=== PATIENT | female | born 1950 | race Caucasian/White ===

== ENCOUNTER 2016-11-15 15:21 | Outpatient (CLI) | payer OTHER | END 2016-11-15 15:22 | disposition home or self-care (01) | DX: Z00.00 Encounter for general adult medical examination without abnormal findings (principal) ==

== ENCOUNTER 2018-03-05 11:41 | Outpatient (CLI) | payer OTHER, MEDICARE ==
--- NOTE | 2018-03-05 14:51 | XRAY Report ---
PELVIS AND RIGHT HIP: 03/05/2018 HISTORY: Pain. COMPARISON: Pelvic CT 11/27/2009. FINDINGS: The hip joints are well maintained. There is no fracture or malalignment. Sacroiliac joints and symphysis pubis are unremarkable. Mild degenerative change in the lower lumbar spine. IMPRESSION: ESSENTIALLY NEGATIVE PELVIS AND RIGHT HIP X-RAY. TD: 03/05/2018 14:31
== END 2018-03-05 11:42 | disposition home or self-care (01) ==
LOC: DI 11:41
PROVIDERS: ATTEND Internal Medicine
DX: M25.551 Pain in right hip (principal)

== ENCOUNTER 2018-08-25 08:28 | Emergency (ER) | payer MEDICARE, OTHER ==
[2018-08-25] MEDS ORDERED: SODIUM CHLORIDE 0.9% 1,000 ML IV ONE (10:22)
--- NOTE | 2018-08-25 10:24 | ED Physician Documentation ---
History of Present Illness - Stated complaint Stated Complaint: VISION CHANGES/ALOC - Chief complaint Chief Complaint: Neuro - History obtained from History obtained from: Patient, Family - History of Present Illness Timing: How many weeks ago (1) - Additonal information Additional information: intermittent visual changes with difficulty concentrating and a lot of stress at home. She reports difficulty concentrating and especially trying to read. Review of Systems Constitutional: reports: Fatigue. denies: Fever, Chills, Myalgias Eyes: reports: Other (difficutly with reading/concentration). denies: Loss of vision, Decreased vision, Photophobia, Discharge, Irritation Nose: denies: Rhinorrhea / runny nose, Congestion Throat: denies: Sore throat Cardiac: denies: Chest pain / pressure, Palpitations Respiratory: denies: Dyspnea, Cough GI: denies: Abdominal Pain, Nausea, Vomiting : denies: Dysuria, Frequency Skin: denies: Rash Musculoskeletal: denies: Neck pain, Back pain, Extremity pain Neurologic: reports: Confused. denies: Generalized weakness, Focal weakness, Numbness PD PAST MEDICAL HISTORY - Present Medications Home Medications: Ambulatory Orders Medication Instructions Recorded Confirmed Atorvastatin [Lipitor] 20 mg PO DAILY #30 tablet 08/25/18 Ipratropium/Albuterol [Duoneb] QID PRN 08/25/18 - Allergies Allergies/Adverse Reactions: Allergies Allergy/AdvReac Type Severity Reaction Status Date / Time No Known Drug Allergies Allergy Verified 08/25/18 08:53 PD ED PE NORMAL - Vitals Vital signs reviewed: Yes (hypertensive) - General General: Alert and oriented X 3, No acute distress, Well developed/nourished - HEENT HEENT: Atraumatic, PERRL, EOMI, Moist mucous membranes, Pharynx benign, Dentition benign - Neck Neck: Supple, no meningeal sign, No bony TTP - Cardiac Cardiac: RRR, No murmur - Respiratory Respiratory: No respiratory distress, Clear bilaterally - Abdomen Abdomen: Soft, Non tender - Back Back: No CVA TTP, No spinal TTP - Derm Derm: Normal color, Warm and dry, No rash - Extremities Extremities: No deformity, No edema - Neuro Neuro: Alert and oriented X 3, 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4 RBC 4.13 L Hgb 13.8 Hct 39.0 MCV 94.5 MCH 33.3 H MCHC 35.2 RDW 13.6 Plt Count 476 H MPV 7.2 L Neut # (Auto) 3.6 Lymph # (Auto) 2.1 [place] # (Auto) 0.5 Eos # (Auto) 0.1 Baso # (Auto) 0.2 H Absolute Nucleated RBC 0.00 Nucleated RBC % 0.1 Sodium 134 L Potassium 3.6 Chloride 98 L Carbon Dioxide 28 Anion Gap 8.0 BUN 8 Creatinine 0.6 Estimated GFR (MDRD) 100 Glucose 108 H Calcium 8.4 L Total Bilirubin 0.4 AST 21 ALT 18 Alkaline Phosphatase 66 Troponin I < 0.04 Total Protein 6.6 L Albumin 3.5 Globulin 3.1 Albumin/Globulin Ratio 1.1 Lipase 38 Urine Color Urine Clarity Urine pH Ur Specific [place] Urine Protein Urine Glucose (UA) Urine Ketones Urine Occult Blood Urine Nitrite Urine Bilirubin Urine Urobilinogen Ur Leukocyte Esterase Ur Microscopic Review Urine Culture Comments 08/25/18 12:19 WBC RBC Hgb Hct MCV MCH MCHC RDW Plt Count MPV Neut # (Auto) Lymph # (Auto) [place] # (Auto) Eos # (Auto) Baso # (Auto) Absolute Nucleated RBC Nucleated RBC % Sodium Potassium Chloride Carbon Dioxide Anion Gap BUN Creatinine Estimated GFR (MDRD) Glucose Calcium Total Bilirubin AST ALT Alkaline Phosphatase Troponin I Total Protein Albumin Globulin Albumin/Globulin Ratio Lipase Urine Color DARK YELLOW Urine Clarity CLEAR Urine pH 6.5 Ur Specific [place] 1.020 Urine Protein NEGATIVE Urine Glucose (UA) NEGATIVE Urine Ketones TRACE Urine Occult Blood NEGATIVE Urine Nitrite NEGATIVE Urine Bilirubin NEGATIVE Urine Urobilinogen 0.2 (NORMAL) Ur Leukocyte Esterase NEGATIVE Ur Microscopic Review NOT INDICATED Urine Culture Comments NOT INDICATED - Rads (name of study) CT head without Radiology: Prelim report reviewed (Impression: Posterior distribution hypodensity in the right temporoparietal/occipital distribution is most concerning for subacute infarction though a nonvisualized mass with surrounding edema represents a lice likely differential diagnosis. There is no substantial mass-effect or calcification to suggest an underlying mass.), Final report rece ived, Discussed with rads, EMP read indepedently, See rad report doppler carotid Radiology: Prelim report reviewed (Impression: 1. There is mild bilateral carotid artery plaquing. 2 In the right carotid artery there are no elevated carotid artery velocities to suggest hemodynamically significant stenosis. 3 In the left carotid artery there are no elevated carotid artery velocities to suggest hemodynamically significant stenosis. 4 Normal antegrade flow is present in bilateral vertebral arteries.), EMP read indepedently, See rad report Procedures - IVC sono (time) 1008 Bedside IVC sono: IVC measures (cm) (1.39), IVC collapsed c insp (cm) (complete), Dehydration (mild est at 1 liter.) PD MEDICAL DECISION MAKING - ED course Complexity details: reviewed results, re-evaluated patient, considered differential, d/w patient, d/w family ED course: 68 y/o female with one week history of "vision problems" with trouble concentrating and difficulty reading appears to have had a CVA in the occipital distribution. She is outside the window of opportunity. My initial reaction was to admit this patient to the hospital to complete a stroke work up and after discussing this completed stroke with our hospitalist, Suzy recommended obtaining the carotid doppler here today and the remainder of the work up as an outpatient and of course treatment with aspirin and a statin. I was in agreement with this approach and the patient preferred this as well. She does have a primary in our system and out patient work up should not be delayed to include the echo and MRI of the head. She will need referral to a neurologist for follow up as well. Departure - Departure Disposition: 01 Home, Self Care Clinical Impression: Cerebrovascular accident (CVA) Qualifiers: CVA mechanism: unspecified Qualified Code(s): I63.9 - Cerebral infarction, unspecified Condition: Stable Instructions: ED Stroke Completed Follow-Up: Jeferson Price MD [Primary Care Provider] - Prescriptions: Atorvastatin [Lipitor] 20 mg PO DAILY #30 tablet Forms: Activity restrictions
[2018-08-25 10:44] LABS: BASOPHILS # (AUTO) 0.2 10^3/uL (0.0-0.1); BASOPHILS % (AUTO) 2.8 %; EOSINOPHILS # (AUTO) 0.1 10^3/uL (0.0-0.7); EOSINOPHILS % (AUTO) 1.4 %; HGB - HEMOGLOBIN 13.8 g/dL (12.0-16.0); LYMPHOCYTES # (AUTO) 2.1 10^3/uL (1.5-3.5); LYMPHOCYTES % (AUTO) 32.8 %; MEAN CORPUSCULAR HEMOGLOBIN 33.3 pg (27.0-31.0); MEAN CORPUSCULAR HGB CONC 35.2 g/dL (32.0-36.0); MEAN CORPUSCULAR VOLUME 94.5 fL (81.0-99.0); MEAN PLATELET VOLUME 7.2 fL (7.9-10.8); MONOCYTES # (AUTO) 0.5 10^3/uL (0.0-1.0); MONOCYTES % (AUTO) 7.4 %; NEUTROPHILS # (AUTO) 3.6 10^3/uL (1.5-6.6); NEUTROPHILS % (AUTO) 55.6 %; PLT - PLATELET COUNT 476 10^3/uL (130-450); RED BLOOD COUNT 4.13 10^6/uL (4.20-5.40); RED CELL DISTRIBUTION WIDTH 13.6 % (12.0-15.0); WHITE BLOOD COUNT 6.4 x10^3/uL (4.8-10.8)
[2018-08-25 10:52] LABS: ALBUMIN 3.5 g/dL (3.2-5.5); ALBUMIN/GLOBULIN RATIO 1.1 (1.0-2.2); BILIRUBIN,TOTAL 0.4 mg/dL (0.2-1.0); CALCIUM 8.4 mg/dL (8.5-10.3); CREATININE 0.6 mg/dL (0.4-1.0); TOTAL PROTEIN 6.6 g/dL (6.7-8.2)
--- NOTE | 2018-08-25 10:58 | CT Report ---
Reason: vision changes/disorientation Procedure Date: 08/25/2018 Accession Number: [id number] / [id number] Procedure: CT - Head W/O CPT Code: FULL RESULT: EXAM: CT HEAD WITHOUT CONTRAST EXAM DATE: 08/25/2018 10:43 AM. CLINICAL HISTORY: Vision changes/disorientation. COMPARISON: None. TECHNIQUE: Multiaxial CT images were obtained from the foramen magnum to the vertex. Reformats: Sagittal and coronal. IV contrast: None. In accordance with CT protocol optimization, one or more of the following dose reduction techniques were utilized for this exam: automated exposure control, adjustment of mA and/or KV based on patient size, or use of iterative reconstructive technique. FINDINGS: Parenchyma: Hypodensity in a right posterior parietotemporal-occipital distribution is suspicious for subacute infarction. No intraparenchymal hemorrhage. No evidence of significant mass or midline shift. Bee-white differentiation is distinct. Extraaxial Spaces: Normal for age. No subdural or epidural collections identified. Ventricles: Normal in size and position. Sinuses and Orbits: Imaged paranasal sinuses, orbits, and mastoids show no significant abnormality. Bones: No evidence of fracture or calvarial defect. Other: None. IMPRESSION: Posterior distribution hypodensity in the right temporoparietal-occipital distribution is most concerning for subacute infarction though a nonvisualized mass with surrounding edema represents a less likely differential diagnosis. There is no substantial mass effect or calcification to suggest an underlying mass. RADIA CRITICAL RESULT: The findings were discussed with Dr. Hunt on 08/25/2018 at 11:50 AM.
[2018-08-25 12:24] LABS: BILIRUBIN,URINE NEGATIVE (NEGATIVE); GLUCOSE, URINE (UA) NEGATIVE (NEGATIVE); KETONES,URINE (UA) TRACE mg/dL (NEGATIVE); LEUKOCYTE ESTERASE, URINE NEGATIVE (NEGATIVE); NITRITE,URINE NEGATIVE (NEGATIVE); OCCULT BLOOD,URINE NEGATIVE (NEGATIVE); PH,URINE 6.5 PH (5.0-7.5); PROTEIN,URINE NEGATIVE (NEGATIVE); UROBILINOGEN,URINE 0.2 (NORMAL) E.U./dL (NORMAL)
[2018-08-25 12:30] LABS: CLARITY,URINE CLEAR (CLEAR)
--- NOTE | 2018-08-25 14:14 | Ultrasound Report ---
Reason: CVA with right occipital infarction Procedure Date: 08/25/2018 Accession Number: [id number] / [id number] Procedure: US - Carotid Doppler Complete CPT Code: FULL RESULT: EXAM: BILATERAL CAROTID AND VERTEBRAL ARTERY DUPLEX DOPPLER ULTRASOUND: EXAM DATE: 08/25/2018 01:33 PM CLINICAL HISTORY: Stroke. COMPARISON: None. TECHNIQUE: Grayscale imaging, color Doppler, and duplex spectral Doppler were used to evaluate the carotid and vertebral arteries bilaterally. Static images were obtained. FINDINGS: No significant plaque is identified in the right or left common or internal carotid arteries. Normal antegrade flow is present in bilateral vertebral arteries. VELOCITIES (cm/sec): Right: RCCA Mid: PSV 61.6 cm/sec. RCCA Dist: PSV 50.4 cm/sec. BJ Prox: PSV 47.6 cm/sec, EDV 18.7 cm/sec. BJ Mid: PSV 75.5 cm/sec, EDV 27.7 cm/sec. BJ Dist: PSV 90.4 cm/sec, EDV 36.5 cm/sec RECA: PSV 103.6 cm/sec. RVA: PSV 34.4 cm/sec. RVA flow direction: Antegrade. ICA/CCA: 1.47 Left: LCCA Mid: PSV 55.5 cm/sec. LCCA Dist: PSV 58.5 cm/sec. LICA Prox: PSV 58.8 cm/sec, EDV 25.8 cm/sec. LICA Mid: PSV 82.3 cm/sec, EDV 31.9 cm/sec. LICA Dist: PSV 60.5 cm/sec, EDV 21.8 cm/sec LECA: PSV 49.3 cm/sec. LVA: PSV 48.7 cm/sec. RVA flow direction: Antegrade. ICA/CCA: 1.40 ICA diameter stenosis: Right: <50% by velocity and <70% by NASCET criteria. Left: <50% by velocity and <70% by NASCET criteria. IMPRESSION: 1. There is mild bilateral carotid artery plaquing. 2. In the right carotid artery there are no elevated carotid artery velocities to suggest hemodynamically significant stenosis. 3. In the left carotid artery there are no elevated carotid artery velocities to suggest hemodynamically significant stenosis. 4. Normal antegrade flow is present in bilateral vertebral arteries. General Recommendations: Stenosis =50% ICA - Follow-up ultrasound 6-12 months Stenosis <50% ICA - High Risk Patient with plaque - Follow-up ultrasound 1-2 years Normal Study but High Risk Patient - Follow-up ultrasound 3-5 years Management recommendations and diagnostic criteria are based on current IAC endorsed standards in Carotid Artery Stenosis: Grayscale and Doppler Ultrasound Diagnosis. Validated velocity measurements with angiographic measurements and velocity criteria are extrapolated from diameter data as defined by the Society of Radiologists in Ultrasound Consensus Conference Radiology 2003; 229;340-346. RADIA
[2018-08-25] MEDS ORDERED: ASPIRIN CHEW 81 MG TABLET PO STA (14:15)
[2018-08-25] MEDS ORDERED: ATORVASTATIN 40 MG TABLET PO STA (14:16)
[2018-08-25 14:49] VITALS: BP 164/98
== END 2018-08-25 14:53 | disposition home or self-care (01) ==
LOC: ED 08:28
DX: I63.9 Cerebral infarction, unspecified (principal); R94.31 Abnormal electrocardiogram [ECG] [EKG]
CPT/HCPCS: 36415; 70450; 80053; 81003; 83690; 84484; 85025; 93005; 93880; 96360; 99283; 99284; A9270; 81001; 87086

== ENCOUNTER 2018-10-10 13:32 | Outpatient (CLI) | payer MEDICARE, OTHER | END 2018-10-10 13:33 | disposition home or self-care (01) | LOC: DI 13:32 | PROVIDERS: ATTEND Registered Nurse | DX: I63.9 Cerebral infarction, unspecified (principal); H53.40 Unspecified visual field defects; I35.8 Other nonrheumatic aortic valve disorders | CPT/HCPCS: 93306 ==

== ENCOUNTER 2019-02-08 07:27 | Outpatient (CLI) | payer MEDICARE, OTHER ==
[2019-02-08 10:50] LABS: ALBUMIN 4.7 g/dL (3.2-5.5); ALKALINE PHOSPHATASE 54 IU/L (42-121); ALT ALANINE AMINOTRANSFERASE 24 IU/L (10-60); AST ASPARTATE AMINOTRANSFERASE 24 IU/L (10-42); BILIRUBIN,TOTAL 1.1 mg/dL (0.2-1.0); BUN - BLOOD UREA NITROGEN 12 mg/dL (6-20); CALCIUM 8.8 mg/dL (8.5-10.3); CARBON DIOXIDE - CO2 29 mmol/L (21-32); CHLORIDE 95 mmol/L (101-111); CHOL/HDL RATIO 2.2 (<4.4); CHOLESTEROL 180 mg/dL; CREATININE 0.5 mg/dL (0.4-1.0); GFR - MDRD 123 (>89); GLUCOSE 101 mg/dL (70-100); HDL CHOLESTEROL 81 mg/dL; LDL CHOLESTEROL,CALCULATED 85 mg/dL; SODIUM 134 mmol/L (135-145); VLDL CHOLESTEROL 14 mg/dL
== END 2019-02-08 07:28 | disposition home or self-care (01) ==
LOC: LAB.F 07:27
PROVIDERS: ATTEND Internal Medicine
DX: I10 Essential (primary) hypertension (principal)
CPT/HCPCS: 36415; 80053; 80061; 83721

== ENCOUNTER 2019-04-30 | Outpatient (CLI) | payer MEDICARE, OTHER | END 2019-04-30 07:41 | disposition home or self-care (01) ==

== ENCOUNTER 2019-12-07 16:36 | Outpatient (CLI) | payer MEDICARE, OTHER | END 2019-12-07 23:59 | disposition home or self-care (01) | LOC: LAB.R 16:36 | PROVIDERS: ATTEND Nurse Practitioner Family | DX: R50.9 Fever, unspecified (principal); M79.10 Myalgia, unspecified site | CPT/HCPCS: 81599; 87275; 87276 ==

== ENCOUNTER 2019-12-14 15:09 | Outpatient (CLI) | payer MEDICARE, OTHER ==
--- NOTE | 2019-12-14 15:31 | XRAY Report ---
Reason: COUGH, COPD Procedure Date: 12/14/2019 Accession Number: [id number] / [id number] Procedure: WCP - Chest 2 View X-Ray CPT Code: 20352 Final Report FULL RESULT: EXAM: CHEST RADIOGRAPHY EXAM DATE: 12/14/2019 03:09 PM. CLINICAL HISTORY: Cough, COPD. COMPARISON: XR CHEST PA AND LAT 02/26/2011 3:20 PM. TECHNIQUE: 2 views. FINDINGS: Lungs/Pleura: Hyperinflation. Development of infiltrate along the lateral right upper and lower lung, with infiltrate along the major fissure and the posterior costophrenic angle. The left lung appears clear. Hyperinflation. No pleural fluid collections. Mediastinum: Heart and mediastinal contours are unremarkable. Other: None. IMPRESSION: Development of lateral right sided infiltrate. Followup to resolution suggested. RADIA
== END 2019-12-14 15:10 | disposition home or self-care (01) ==
LOC: DI.WCP 15:09
PROVIDERS: ATTEND Nurse Practitioner Family
DX: R91.8 Other nonspecific abnormal finding of lung field (principal)
CPT/HCPCS: 71046

== ENCOUNTER 2019-12-17 08:37 | Outpatient (CLI) | payer MEDICARE, OTHER ==
--- NOTE | 2019-12-17 09:53 | XRAY Report ---
Reason: COUGH,DIVERTICULOSIS,ASYMPTOMATIC Procedure Date: 12/17/2019 Accession Number: [id number] / [id number] Procedure: XR - Chest 2 View X-Ray CPT Code: 21674 Final Report FULL RESULT: EXAM: CHEST RADIOGRAPHY EXAM DATE: 12/17/2019 09:10 AM. CLINICAL HISTORY: Cough, diverticulosis, asymptomatic. COMPARISON: CHEST 2 VIEW 12/14/2019 2:34 PM. TECHNIQUE: 2 views. FINDINGS: Lungs/Pleura: No significant change in areas of dense consolidation predominantly in the lateral right upper lobe and lateral segment of the right middle lobe. Development of a subtle area of opacification laterally in the left upper lobe. Stable moderate hyperinflation. No pleural fluid collections. Mediastinum: No cardiomegaly. Stable appearance of the mediastinal silhouette. Other: None. IMPRESSION: No significant change in areas of dense consolidation laterally in the right lung. Subtle infiltrative process also suggested laterally in the left midlung field. Follow-up to resolution suggested. RADIA
== END 2019-12-17 08:38 | disposition home or self-care (01) ==
LOC: DI 08:37
PROVIDERS: ATTEND Nurse Practitioner Family
DX: J18.1 Lobar pneumonia, unspecified organism (principal)
CPT/HCPCS: 71046

== ENCOUNTER 2020-02-09 06:28 | Emergency (ER) | payer MEDICARE, OTHER ==
[2020-02-09] MEDS ORDERED: IOVERSOL 320 100 ML VIAL IVP ONE (06:49)
[2020-02-09] MEDS: ONDANSETRON 4 MG/2 ML VIAL IVP STA (06:50)
[2020-02-09] MEDS ORDERED: ONDANSETRON 4 MG/2 ML VIAL ONE (06:50)
[2020-02-09] MEDS: IOVERSOL 320 100 ML VIAL IVP ONE (07:13)
--- NOTE | 2020-02-09 07:36 | ED Physician Documentation ---
PD HPI HEADACHE - Stated complaint Stated Complaint: POSS STROKE - Chief complaint Chief Complaint: General - History obtained from History obtained from: Patient, EMS - History of Present Illness Timing - onset: Enter time (609), Today Timing - onset during: Light activity Timing - duration: Minutes Timing - details: Abrupt onset, Still present Location: Global Quality: Throbbing Associated symptoms: Nausea, Vision changes. No: Fever, Stiff neck, Vomiting, Weakness, Numbness, Syncope, Seizure, Eye pain Improved by: Rest Contributing factors: Hypertension. No: Anticoagulated, Possible carbon monoxide, Recent illness, Trauma Similar symptoms before: Diagnosis (CAV with resultant hemianopsia) Recently seen: Not recently seen - Additional information Additional information: 69-year-old female with a prior history of occipital CVA resulting in a hemianopsia was driving on her way to work this morning when she developed bright flashing lights in the periphery of her vision and subsequent to that she developed nausea and a headache she felt confused she pulled over onto the side of the road and was brought to the hospital by ambulance. Review of Systems Constitutional: denies: Fever, Chills, Myalgias, Fatigue Eyes: reports: Loss of vision (to the left lateral visual field-- pre existing), Photophobia (mild) Ears: denies: Ear pain Nose: denies: Rhinorrhea / runny nose, Congestion Throat: denies: Sore throat Cardiac: denies: Chest pain / pressure, Palpitations Respiratory: denies: Dyspnea, Cough GI: reports: Nausea. denies: Abdominal Pain, Vomiting : denies: Dysuria, Frequency Skin: denies: Rash Musculoskeletal: denies: Neck pain, Back pain, Extremity pain Neurologic: reports: Altered mental status, Headache. denies: Generalized weakness, Focal weakness, Numbness, Difficulty speaking, Head injury, LOC PD PAST MEDICAL HISTORY - Past Medical History Past Medical History: Yes Respiratory: COPD Neuro: CVA Endocrine/Autoimmune: None GI: Diverticulitis HYPERION ADMINISTRATOR: None : None HEENT: Other Psych: None Musculoskeletal: None Derm: None - Past Surgical History Past Surgical History: Yes General: Appendectomy /HYPERION ADMINISTRATOR: section HEENT: Cataracts, Tonsil/Adenoidectomy - Present Medications Home Medications: Ambulatory Orders Medication Instructions Recorded Confirmed Atorvastatin [Lipitor] 20 mg PO DAILY #30 tablet 08/25/18 Ipratropium/Albuterol [Duoneb] QID PRN 08/25/18 Levetiracetam [Keppra] 250 mg PO BID #40 tablet 02/09/20 - Allergies Allergies/Adverse Reactions: Allergies Allergy/AdvReac Type Severity Reaction Status Date / Time No Known Drug Allergies Allergy Verified 02/09/20 06:37 - Social History Does the pt smoke?: Yes Smoking Status: Current every day smoker Does the pt drink ETOH?: Yes Does the pt have substance abuse?: No - Immunizations Immunizations are current?: Yes - POLST Patient has POLST: No PD ED PE NORMAL - Vitals Vital signs reviewed: Yes (hypertensive) - General General: Alert and oriented X 3, No acute distress, Well developed/nourished - HEENT HEENT: Atraumatic, PERRL, EOMI - Neck Neck: Supple, no meningeal sign, No bony TTP - Cardiac Cardiac: RRR, No murmur - Respiratory Respiratory: No respiratory distress, Clear bilaterally - Abdomen Abdomen: Normal bowel sounds, Soft, Non tender, Non distended, No organomegaly - Back Back: No CVA TTP, No spinal TTP - Derm Derm: Normal color, Warm and dry, No rash - Extremities Extremities: No deformity, No edema - Neuro Neuro: Alert and oriented X 3, 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, No motor deficit, Normal speech, Other (There is a left hemianopsia) Eye Opening: Spontaneous Motor: Obeys Commands Verbal: Oriented GCS Score: 15 - Psych Psych: Normal affect, Other (mood is anxious) Results - Vitals Vitals: Vital Signs - 24 hr 02/09/20 02/09/20 02/09/20 06:32 06:37 06:50 Temperature 37.3 C Heart Rate 83 Respiratory 17 17 18 Rate Blood Pressure 174/81 H O2 Saturation 94 02/09/20 02/09/20 02/09/20 07:09 07:57 09:01 Temperature 36.8 C Heart Rate 80 106 H Respiratory 17 18 17 Rate Blood Pressure 152/71 H 152/72 H O2 Saturation 95 98 02/09/20 02/09/20 11:18 13:40 Temperature Heart Rate 93 93 Respiratory 18 18 Rate Blood Pressure 140/73 H 140/73 H O2 Saturation 99 99 Oxygen O2 Source Room air - EKG (time done) 0644 Rate: Rate (enter#) (82) Rhythm: NSR Ischemia: Normal ST segments Compare to prior EKG: Unchanged from prior EKG (SPT 08-25-2018) Computer interpretation: Agree with computer - Labs Labs: Laboratory Tests 02/09/20 02/09/20 02/09/20 07:22 07:22 07:22 WBC 7.7 RBC 3.98 L Hgb 12.3 Hct 38.1 MCV 95.7 MCH 30.9 MCHC 32.3 RDW 14.3 Plt Count 259 MPV 9.2 Neut # (Auto) 5.7 Lymph # (Auto) 1.4 L [place] # (Auto) 0.5 Eos # (Auto) 0.2 Baso # (Auto) 0.1 Absolute Nucleated RBC 0.00 Nucleated RBC % 0.0 PT 11.3 INR 1.0 APTT 28.3 Sodium 132 L Potassium 4.2 Chloride 101 Carbon Dioxide 25 Anion Gap 6.0 BUN 14 Creatinine 0.5 Estimated GFR (MDRD) 123 Glucose 118 H Calcium 8.3 L Urine Color Urine Clarity Urine pH Ur Specific [place] Urine Protein Urine Glucose (UA) Urine Ketones Urine Occult Blood Urine Nitrite Urine Bilirubin Urine Urobilinogen Ur Leukocyte Esterase Ur Microscopic Review Urine Culture Comments 02/09/20 08:45 WBC RBC Hgb Hct MCV MCH MCHC RDW Plt Count MPV Neut # (Auto) Lymph # (Auto) [place] # (Auto) Eos # (Auto) Baso # (Auto) Absolute Nucleated RBC Nucleated RBC % PT INR APTT Sodium Potassium Chloride Carbon Dioxide Anion Gap BUN Creatinine Estimated GFR (MDRD) Glucose Calcium Urine Color YELLOW Urine Clarity CLEAR Urine pH 6.0 Ur Specific [place] 1.010 Urine Protein NEGATIVE Urine Glucose (UA) NEGATIVE Urine Ketones NEGATIVE Urine Occult Blood NEGATIVE Urine Nitrite NEGATIVE Urine Bilirubin NEGATIVE Urine Urobilinogen 0.2 (NORMAL) Ur Leukocyte Esterase NEGATIVE Ur Microscopic Review NOT INDICATED Urine Culture Comments NOT INDICATED - Rads (name of study) CTA head Radiology: Prelim report reviewed (1. More likely chronic than acute segmental occlusion of the proximal right ADJUNCT TEACHER on the same side as previous infarct. 2. No other evidence of for intracranial acute large vessel occlusion or aneurysm.), EMP read indepedently, See rad report CTA neck Radiology: Prelim report reviewed (Impression: 1. Multifocal large artery atherosclerosis with calcified and noncalcified plaque but no evidence of acute abnormality or flow-limiting stenosis of the cervical vertebral or carotid arteries. 2 abnormally enlarged lymph node in the upper mediastinum on the right side of the esophagus. 3 Prominent chronic multilevel hypertrophic degenerative cervical spine spondylosis especially severe hypertrophic facet arthropathy at the left at C5 C4), EMP read indepedently, See rad report CT head Radiology: Prelim report reviewed (Impression: 1. No acute CT evidence of intracranial abnormality. 2. Large old right ADJUNCT TEACHER territory infarct of the medial right occipital lobe. 3. No abnormal enhancement.) PD MEDICAL DECISION MAKING - ED course Complexity details: reviewed old records, reviewed results, re-evaluated patient, considered differential, d/w patient ED course: 69-year-old female with a prior CVA resulting in a left hemianopsia has developed symptoms in route to the hospital this morning with some flashing lights and confusion as well as a headache and nausea is treated here in the emergency department with a migraine cocktail has some improvement in her headache but has persistent symptoms of tingling and weakness. She still does not feel right. Her CTA of the head and neck today are concerning for a large vessel occlusion. The neurologist Dr. Katherine Silveira at [facility] is consulted in the case and after review of the history is concerned for the possibility of seizure versus migraine and she recommends loading with Keppra and a follow-up with her neurologist. We were able to contact the patient's primary and were able to get that her neurologist was Dr. Blake Kiser of [facility]. He has seen the patient once in [place] and his recommendation was to get prolonged monitoring for the suspicion of A. fib. The patient indicates she did have monitoring done and was placed on metoprolol by the jump iron machine presser for rapid heart rate. She did not have atrial fibrillation. Dr. Kiser was mostly concerned about prolonged monitoring as the most likely culprit in the type of clot that she is exhibiting is atrial fibrillation. He has recommended a dosing regimen for the Keppra to be 250 mg twice daily followed by 500 twice daily and a follow-up with him. He recommends patient not drive at this time. 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 For this reason it is important that you not drive for the time being until you are cleared by Dr. Kiser. He has recommended you take Keppra 250 mg twice per day for a week followed by 500 mg twice per day and a follow-up with him. He would like you to have an extended period of monitoring to look for atrial fibrillation. This should be set up by your primary care doctor and through your jump iron machine presser.
[2020-02-09] MEDS: SODIUM CHLORIDE 0.9% 1,000 ML IV ONE (07:52)
[2020-02-09] MEDS: PROCHLORPERAZINE 10 MG/2 ML VIAL IVP STA (07:53)
[2020-02-09] MEDS: diphenhydrAMINE INJ 50 MG/ML VIAL IVP STA (07:55)
--- NOTE | 2020-02-09 07:55 | CT Report ---
Reason: L sided facial droop, L neck pain Procedure Date: 02/09/2020 Accession Number: [id number] / [id number] Procedure: CT - ANGIO NECK W CPT Code: Final Report FULL RESULT: EXAM: CT ANGIOGRAM NECK EXAM DATE: 02/09/2020 07:09 AM. CLINICAL HISTORY: Headache, nausea and left facial droop. Neck pain. COMPARISON: None. TECHNIQUE: Routine axial helical imaging was performed from the skull base through the aortic arch. Reconstructions: Routine multiplanar 3D MIP reconstructions. IV Contrast: 80 mL Optiray 320. Evaluation of arterial stenosis is based on a NASCET method of measurement. In accordance with CT protocol optimization, one or more of the following dose reduction techniques were utilized for this exam: automated exposure control, adjustment of mA and/or KV based on patient size, or use of iterative reconstructive technique. FINDINGS: Probable mild apical pulmonary parenchymal scarring with minimal emphysema. Moderate to severe chronic multilevel hypertrophic degenerative cervical spinal spondylosis including especially severe facet arthropathy on the left at C4-C5. Mild broad-based cervical dextroscoliosis. Minimal degenerative C4 on C5 anterolisthesis. Slight degenerative C5 on C6 retrolisthesis is also present. Along the right side of the upper mediastinal esophagus is an ovoid region of soft tissue density measuring up to 11 x 19 mm transverse on image 130 of series 2, likely an abnormally enlarged lymph node. Mild to moderate chronic atherosclerotic calcifications at the top of the aortic arch. The great vessel origins are patent. Mild to moderate atherosclerosis at the cervical carotid bifurcations. Allowing for motion artifact there is, however, no evidence of acute abnormality or focal flow-limiting stenosis of the cervical carotid arteries, including in the proximal cervical ICA segments. Unremarkable appearance of the right cervical vertebral artery. Mild atherosclerotic luminal stenosis at the origin of the left cervical vertebral artery which shows no other evidence of flow-limiting stenosis or acute abnormality in the neck. IMPRESSION: 1. Multifocal large-artery atherosclerosis with calcified and noncalcified plaque but no evidence of acute abnormality or flow-limiting stenosis of the cervical vertebral or carotid arteries. 2. Abnormally enlarged lymph node in the upper mediastinum on the right side of the esophagus. 3. Prominent chronic multilevel hypertrophic degenerative cervical spinal spondylosis. Especially severe hypertrophic facet arthropathy on the left at C4-C5. RADIA
[2020-02-09] MEDS: KETOROLAC 30 MG/ML VIAL IVP STA (07:56)
[2020-02-09] MEDS: DEXAMETHASONE 10 MG/ML VIAL IVP STA (07:56)
[2020-02-09 07:57] LABS: PT - PROTHROMBIN TIME 11.3 secs (9.9-12.6)
[2020-02-09 08:02] LABS: CALCIUM 8.3 mg/dL (8.5-10.3); CREATININE 0.5 mg/dL (0.4-1.0)
[2020-02-09 08:03] LABS: BASOPHILS # (AUTO) 0.1 10^3/uL (0.0-0.1); BASOPHILS % (AUTO) 0.6 %; EOSINOPHILS # (AUTO) 0.2 10^3/uL (0.0-0.7); EOSINOPHILS % (AUTO) 2.2 %; HGB - HEMOGLOBIN 12.3 g/dL (12.0-16.0); LYMPHOCYTES # (AUTO) 1.4 10^3/uL (1.5-3.5); LYMPHOCYTES % (AUTO) 17.4 %; MEAN CORPUSCULAR HEMOGLOBIN 30.9 pg (27.0-31.0); MEAN CORPUSCULAR HGB CONC 32.3 g/dL (32.0-36.0); MEAN CORPUSCULAR VOLUME 95.7 fL (81.0-99.0); MEAN PLATELET VOLUME 9.2 fL (7.9-10.8); MONOCYTES # (AUTO) 0.5 10^3/uL (0.0-1.0); MONOCYTES % (AUTO) 6.2 %; NEUTROPHILS # (AUTO) 5.7 10^3/uL (1.5-6.6); NEUTROPHILS % (AUTO) 73.2 %; PLT - PLATELET COUNT 259 10^3/uL (130-450); RED BLOOD COUNT 3.98 10^6/uL (4.20-5.40); RED CELL DISTRIBUTION WIDTH 14.3 % (12.0-15.0); WHITE BLOOD COUNT 7.7 x10^3/uL (4.8-10.8)
--- NOTE | 2020-02-09 08:03 | CT Report ---
Reason: L sided facial droop Procedure Date: 02/09/2020 Accession Number: [id number] / [id number] Procedure: CT - ANGIO HEAD W/WO CPT Code: Final Report FULL RESULT: EXAM: CT ANGIOGRAM HEAD. CT SCAN OF THE HEAD WITHOUT AND WITH CONTRAST. EXAM DATE: 02/09/2020 07:09 AM CLINICAL HISTORY: Left facial droop, headache and nausea. COMPARISON: HEAD W/O 08/25/2018 10:28 AM. TECHNIQUE: - CT Scan Head: Using a multidetector scanner, axial images were acquired from the foramen magnum to the skull vertex prior to and following contrast administration. - CT Angiogram: Using a multidetector scanner, high-resolution axial images were acquired from the skull base through vertex following rapid infusion of intravenous contrast. Reformats: Multiplanar MIP reformats were reconstructed. NASCET criteria used for stenosis measurement. IV Contrast: 80 mL Optiray 320. In accordance with CT protocol optimization, one or more of the following dose reduction techniques were utilized for this exam: automated exposure control, adjustment of mA and/or KV based on patient size, or use of iterative reconstructive technique. FINDINGS: Brain CT without IV contrast: Again seen are findings of a now large chronic infarct in the right AUDIENCE DEVELOPMENT MANAGER vascular territory involving the medial right occipital lobe. This has a chronic appearance and now measures about 6 x 2.[address] evidence of acute hemorrhage or acute ischemic infarct, aspects 10. No hydrocephalus or midline shift. Probable mild inferior right mastoid mucosal thickening. Small left anterior maxillary retention cyst. No acute calvarial defect. Brain CT with IV contrast: No abnormal enhancement. Head CT angiogram: Mild chronic punctate calcifications of the left intradural vertebral artery. No vertebrobasilar insufficiency. No acute abnormality or flow-limiting stenosis of the intradural vertebral arteries or basilar artery. More likely chronic than acute segmental occlusion of the proximal right posterior cerebral artery, on the same side as the large old right AUDIENCE DEVELOPMENT MANAGER territory infarct. Patent distal internal carotid arteries with moderately prominent multifocal chronic atherosclerotic calcifications of the proximal pair clinoid and cavernous ICA segments. No proximal flow-limiting stenosis or occlusion of the anterior cerebral arteries, middle cerebral arteries or left posterior cerebral artery. No evidence for aneurysm of the [place] of [place] or major dural venous sinus obstructive thrombus. IMPRESSION: CT Head: 1. No CT evidence of acute intracranial abnormality. 2. Large old right AUDIENCE DEVELOPMENT MANAGER territory infarct of the medial right occipital lobe. 3. No abnormal enhancement. CTA Head: 1. More likely chronic than acute segmental occlusion of the proximal right AUDIENCE DEVELOPMENT MANAGER on the same side as previous infarct. 2. No other evidence for intracranial acute large vessel occlusion or aneurysm. Note: The above findings do not preclude the possibility of small or early ischemic infarct for which brain MRI is more sensitive. RADIA
[2020-02-09 08:05] LABS: PARTIAL THROMBOPLASTIN TIME 28.3 secs (24.9-33.3)
[2020-02-09 09:58] LABS: BILIRUBIN,URINE NEGATIVE (NEGATIVE); GLUCOSE, URINE (UA) NEGATIVE (NEGATIVE); KETONES,URINE (UA) NEGATIVE (NEGATIVE); LEUKOCYTE ESTERASE, URINE NEGATIVE (NEGATIVE); NITRITE,URINE NEGATIVE (NEGATIVE); OCCULT BLOOD,URINE NEGATIVE (NEGATIVE); PROTEIN,URINE NEGATIVE (NEGATIVE); UROBILINOGEN,URINE 0.2 (NORMAL) E.U./dL (NORMAL)
[2020-02-09 09:59] LABS: CLARITY,URINE CLEAR (CLEAR)
[2020-02-09] MEDS: levETIRAcetam INJ 1,000 MG in SODIUM CHLORIDE 0.9% 100ML 100 ML IV STA (10:39)
[2020-02-09 11:24] VITALS: BP 140/73
--- NOTE | 2020-02-10 16:23 | ED Physician Documentation ---
ED Addendum - Addendum Addendum: 02/10/20 16:22 I received a call from provider in [place] asking for a review and vaccine to him an EKG on this patient. She presented today in [place] with chest pain and had EKG showing T wave inversions anteriorly V1 through V4 and an elevated troponin and he wanted a comparison view. I faxed both EKG and the ER record to him at the number he provided. This was done through the [facility] [place].
== END 2020-02-09 16:08 | disposition home or self-care (01) ==
LOC: EDUNIT# → ED 06:28
DX: I69.398 Other sequelae of cerebral infarction (principal); R56.9 Unspecified convulsions; H53.47 Heteronymous bilateral field defects; I70.0 Atherosclerosis of aorta; F17.200 Nicotine dependence, unspecified, uncomplicated
CPT/HCPCS: 36415; 70496; 70498; 80048; 81003; 85025; 85610; 85730; 93005; 96361; 96365; 96375; 99285; J1200; Q9967; 81001; 87086

== ENCOUNTER 2020-08-26 08:00 | Outpatient (CLI) | payer MEDICARE, OTHER | END 2020-08-26 23:59 | disposition home or self-care (01) | LOC: LAB.R 08:00 | PROVIDERS: ATTEND Family Medicine | DX: N39.0 Urinary tract infection, site not specified (principal) | CPT/HCPCS: 87086 ==

== ENCOUNTER 2020-09-15 09:00 | Outpatient (CLI) | payer MEDICARE, OTHER | END 2020-09-15 23:59 | disposition home or self-care (01) | LOC: LAB.S 09:00 | PROVIDERS: ATTEND Emergency Medicine | DX: R30.0 Dysuria (principal) | CPT/HCPCS: 87086 ==

== ENCOUNTER 2020-09-21 12:56 | Emergency (ER) | payer MEDICARE, OTHER ==
[2020-09-21] MEDS ORDERED: LACTATED RINGERS 1,000 ML IV STA (13:36)
[2020-09-21 14:02] LABS: BASOPHILS % (AUTO) 0.6 %; EOSINOPHILS # (AUTO) 0.1 10^3/uL (0.0-0.7); EOSINOPHILS % (AUTO) 2.6 %; LYMPHOCYTES # (AUTO) 1.9 10^3/uL (1.5-3.5); LYMPHOCYTES % (AUTO) 34.2 %; MEAN CORPUSCULAR HEMOGLOBIN 33.6 pg (27.0-31.0); MEAN CORPUSCULAR HGB CONC 33.1 g/dL (32.0-36.0); MEAN CORPUSCULAR VOLUME 101.4 fL (81.0-99.0); MEAN PLATELET VOLUME 9.2 fL (7.9-10.8); MONOCYTES # (AUTO) 0.5 10^3/uL (0.0-1.0); MONOCYTES % (AUTO) 8.5 %; NEUTROPHILS # (AUTO) 2.9 10^3/uL (1.5-6.6); NEUTROPHILS % (AUTO) 53.9 %; PLT - PLATELET COUNT 255 10^3/uL (130-450); RED BLOOD COUNT 3.57 10^6/uL (4.20-5.40); RED CELL DISTRIBUTION WIDTH 13.7 % (12.0-15.0); WHITE BLOOD COUNT 5.4 x10^3/uL (4.8-10.8)
[2020-09-21 14:12] LABS: CALCIUM 9.3 mg/dL (8.5-10.3); CREATININE 0.7 mg/dL (0.4-1.0)
[2020-09-21] MEDS ORDERED: IOVERSOL 320 100 ML VIAL IVP ONE ×2 (14:21→14:43)
--- NOTE | 2020-09-21 14:58 | CT Report ---
PROCEDURE: ANGIO HEAD W/WO INDICATIONS: transient vision loss CONTRAST: IV CONTRAST: Optiray 320 ml: 80 PO CONTRAST: *NO PO CONTRAST TECHNIQUE: Precontrast 4.5 mm thick angled axial sections acquired from the foramen magnum to the vertex. Afte r the administration of intravenous contrast, 1 mm thick sections acquired through the [place] of [place] is. Postcontrast 4.5 mm thick sections then re-acquired from the foramen magnum to the vertex. 3-di mensional kxzxzvu-mbzkkphyg-zwehqdtxbm (MIP) and/or volume rendering reformats were acquired of the c entral intracranial vasculature. For radiation dose reduction, the following was used: automated ex posure control, adjustment of mA and/or kV according to patient size. COMPARISON: CT angiogram of the head dated 02/09/2020. FINDINGS: Image quality: Excellent. Anterior circulation: The inferior intracranial internal carotid arteries are normal in size and flow . Atheromatous calcifications are present bilaterally within the cavernous portions of the internal c arotid arteries with resultant moderate stenosis. The flow within the paired anterior cerebral arter ies is normal and symmetric. The flow within the middle cerebral arteries is normal and symmetric. The anterior communicating artery is not seen. No aneurysms are seen. Posterior circulation: Visualized portions of the vertebral arteries demonstrate normal caliber, and join to form a normal appearing basilar artery. Flow within the posterior cerebral arteries is norm al and symmetric. No aneurysms are seen. CSF spaces: Ventricles are normal in size and shape. Basal cisterns are patent. No extra-axial flu id collections. Brain: No midline shift. Encephalomalacia is redemonstrated within the right occipital lobe unchange d from the CT dated 02/09/2020. No intracranial bleeds or masses. Bee-white matter interface appears intact. Skull and face: Calvarium and facial bones appear intact, without suspicious lesions. Sinuses: Visualized sinuses and mastoids are clear. IMPRESSION: 1. No acute intercranial findings. 2. Old right ANALYSIS MGR distribution infarct, unchanged and the study dated 02/09/2020. 3. No new stenosis, occlusion, or aneurysm. Reviewed by: Leandra Hernandez MD on 09/21/2020 2:57 PM PST Approved by: Leandra Hernandez MD on 09/21/2020 2:57 PM PST Station ID: [id number]
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
--- NOTE | 2020-09-21 17:01 | Ultrasound Report ---
PROCEDURE: Carotid Doppler Complete INDICATIONS: r/o carotid stenosis. possible TIA TECHNIQUE: Color and pulse Doppler interrogation was performed of both carotid systems, with image documentation and velocity measurements. COMPARISON: 08/25/2018 FINDINGS: Right side: Common carotid artery peak systolic velocity: 71 cm/sec. Internal carotid artery peak systolic velocity: 99 cm/sec. Internal carotid artery end diastolic velocity: 32 cm/sec. External carotid artery peak systolic velocity: 94 cm/sec. ICA/CCA peak systolic ratio: 1.4 . Bee scale imaging description: Intimal medial thickening of the common carotid artery. Mixed calcif ied and noncalcified plaque at the right carotid bulb causing a minor subjective luminal ICA stenosis . Mild spectral broadening of the distal waveform in the ICA. Percent internal carotid artery stenosis: Less than 50%. . Vertebral artery: Flow direction is antegrade. Left side: Common carotid artery peak systolic velocity: 61 cm/sec. Internal carotid artery peak systolic velocity: 86 cm/sec. Internal carotid artery end diastolic velocity: 33 cm/sec. External carotid artery peak systolic velocity: 88 cm/sec. ICA/CCA peak systolic ratio: 1.4 . Bee scale imaging description: Shadowing calcific plaque left carotid bulb causing mild to moderate subjective luminal stenosis and luminal irregularity. There is intimal medial thickening in the comm on carotid artery. Calcific plaque seen in the proximal internal carotid artery causing mild subjecti ve luminal narrowing. Vascular tortuosity results and waveform spectral broadening. Percent internal carotid artery stenosis: Less than 50% . Vertebral artery: Flow direction is antegrade. IMPRESSION: 1. Less than 50% internal carotid artery stenosis bilaterally based on waveform and velocity criteria . 2. Moderate calcific plaque in the left carotid bulb and left ICA origin. 3. Bilateral intimal medial thickening of the common carotid arteries. The estimate of stenosis included in the report of the imaging study was calculated using the NASCET method Reviewed by: Adenike Pena MD on 09/21/2020 5:00 PM PST Approved by: Adenike Pena MD on 09/21/2020 5:00 PM PST Station ID: [id number]
[2020-09-21 17:08] VITALS: BP 157/81
== END 2020-09-21 17:00 | disposition home or self-care (01) ==
LOC: ED 12:56
DX: H54.3 Unqualified visual loss, both eyes (principal); I10 Essential (primary) hypertension; I25.2 Old myocardial infarction; F17.200 Nicotine dependence, unspecified, uncomplicated
CPT/HCPCS: 36415; 70496; 80048; 85025; 93880; 99281; 99284; J7120; Q9967

== ENCOUNTER 2020-09-25 08:00 | Outpatient (CLI) | payer MEDICARE, OTHER | END 2020-09-25 23:59 | disposition home or self-care (01) | LOC: LAB.N 08:00 | PROVIDERS: ATTEND Physician Assistant Medical | DX: A09 Infectious gastroenteritis and colitis, unspecified (principal); Z20.828 Contact with and (suspected) exposure to other viral communicable diseases ==

== ENCOUNTER 2020-10-02 07:36 | Outpatient (CLI) | payer MEDICARE, OTHER | END 2020-10-02 07:37 | disposition critical access hospital (66) | LOC: EMS 07:36 | PROVIDERS: ATTEND Surgery | DX: R41.0 Disorientation, unspecified (principal); R51.9 Headache, unspecified; H53.8 Other visual disturbances; R11.0 Nausea | CPT/HCPCS: A0425; A0427 ==

== ENCOUNTER 2020-10-02 08:10 | Emergency (ER) | payer MEDICARE, OTHER ==
[2020-10-02] MEDS ORDERED: ONDANSETRON 4 MG/2 ML VIAL IVP STA (08:27)
[2020-10-02] MEDS ORDERED: ASPIRIN 325 MG TABLET PO STA (08:29)
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
[2020-10-02 09:06] LABS: BASOPHILS # (AUTO) 0.1 10^3/uL (0.0-0.1); BASOPHILS % (AUTO) 0.4 %; EOSINOPHILS # (AUTO) 0.1 10^3/uL (0.0-0.7); EOSINOPHILS % (AUTO) 0.5 %; HGB - HEMOGLOBIN 12.1 g/dL (12.0-16.0); LYMPHOCYTES # (AUTO) 1.1 10^3/uL (1.5-3.5); LYMPHOCYTES % (AUTO) 8.8 %; MEAN CORPUSCULAR HGB CONC 34.3 g/dL (32.0-36.0); MEAN CORPUSCULAR VOLUME 99.2 fL (81.0-99.0); MEAN PLATELET VOLUME 9.2 fL (7.9-10.8); MONOCYTES # (AUTO) 0.9 10^3/uL (0.0-1.0); MONOCYTES % (AUTO) 7.1 %; NEUTROPHILS # (AUTO) 10.4 10^3/uL (1.5-6.6); NEUTROPHILS % (AUTO) 82.6 %; PLT - PLATELET COUNT 314 10^3/uL (130-450); RED BLOOD COUNT 3.56 10^6/uL (4.20-5.40); RED CELL DISTRIBUTION WIDTH 13.3 % (12.0-15.0); WHITE BLOOD COUNT 12.6 x10^3/uL (4.8-10.8)
[2020-10-02 09:18] LABS: GLUCOSE, URINE (UA) 100 mg/dL (NEGATIVE); KETONES,URINE (UA) TRACE mg/dL (NEGATIVE); LEUKOCYTE ESTERASE, URINE NEGATIVE (NEGATIVE); NITRITE,URINE NEGATIVE (NEGATIVE); OCCULT BLOOD,URINE NEGATIVE (NEGATIVE); PH,URINE 5.5 PH (5.0-7.5); PROTEIN,URINE TRACE mg/dL (NEGATIVE); UROBILINOGEN,URINE 0.2 (NORMAL) E.U./dL (NORMAL)
[2020-10-02 09:18] LABS: ALBUMIN/GLOBULIN RATIO 1.3 (1.0-2.2); ALKALINE PHOSPHATASE 64 IU/L (42-121); ALT ALANINE AMINOTRANSFERASE 15 IU/L (10-60); AST ASPARTATE AMINOTRANSFERASE 20 IU/L (10-42); BILIRUBIN,TOTAL 0.7 mg/dL (0.2-1.0); BUN - BLOOD UREA NITROGEN 13 mg/dL (6-20); CALCIUM 8.8 mg/dL (8.5-10.3); CARBON DIOXIDE - CO2 24 mmol/L (21-32); CHLORIDE 95 mmol/L (101-111); CREATININE 0.7 mg/dL (0.4-1.0); GLUCOSE 110 mg/dL (70-100); LIPASE 32 U/L (22-51); SODIUM 131 mmol/L (135-145); TOTAL PROTEIN 7.1 g/dL (6.7-8.2)
--- NOTE | 2020-10-02 09:21 | XRAY Report ---
PROCEDURE: Chest 1 View X-Ray INDICATIONS: Chest Pain TECHNIQUE: One view of the chest was acquired. COMPARISON: 12/17/2019 FINDINGS: Surgical changes and devices: None. Lungs and pleura: No pleural effusions or pneumothorax. Lungs are clear. Mediastinum: Mediastinal contours appear normal. Heart size is normal. Bones and chest wall: No suspicious bony lesions. Overlying soft tissues appear unremarkable. IMPRESSION: No acute cardiopulmonary pathology. Reviewed by: Yo Disla MD on 10/02/2020 9:20 AM [facility] Approved by: Yo Disla MD on 10/02/2020 9:20 AM [facility] Station ID: [id number]
[2020-10-02 09:24] LABS: CLARITY,URINE CLEAR (CLEAR)
[2020-10-02 09:25] LABS: MUDS CUTOFF CONCENTRATIONS CUTOFF CONC BELOW:
[2020-10-02 09:27] LABS: BILIRUBIN,URINE NEGATIVE (NEGATIVE); ICTOTEST,URINE NEGATIVE
[2020-10-02 09:36] LABS: BACTERIA,URINE Few /HPF (None Seen); RBC,URINE 0-5 /HPF (0-5); SQUAMOUS EPITHELIAL CELL,UR MOD Squamous (<= Few)
[2020-10-02 09:38] LABS: AMPHETAMINE SCREEN,URINE NEGATIVE (NEGATIVE); BENZODIAZEPINES SCREEN, URINE NEGATIVE (NEGATIVE); COCAINE SCREEN URINE NEGATIVE (NEGATIVE); METHADONE SCREEN, URINE NEGATIVE (NEGATIVE); METHAMPHETAMINES SCREEN, URINE NEGATIVE (NEGATIVE); OPIATE SCREEN, URINE NEGATIVE (NEGATIVE); OXYCODONE SCREEN, URINE NEGATIVE (NEGATIVE); PROPOXYPHENE SCREEN, URINE NEGATIVE (NEGATIVE); TRICYCLIC ANTIDEPRESSANT,URINE NEGATIVE (NEGATIVE)
[2020-10-02] MEDS ORDERED: METOCLOPRAMIDE 10 MG/2 ML VIAL IVP STA (09:57)
[2020-10-02 11:12] VITALS: BP 119/55
== END 2020-10-02 11:11 | disposition home or self-care (01) ==
LOC: EDUNIT# → EDBD → ED 08:10
DX: R42 Dizziness and giddiness (principal); R11.0 Nausea; H53.8 Other visual disturbances; Z86.73 Personal history of transient ischemic attack (TIA), and cerebral infarction without residual deficits; J44.9 Chronic obstructive pulmonary disease, unspecified; I10 Essential (primary) hypertension; F17.200 Nicotine dependence, unspecified, uncomplicated
CPT/HCPCS: 36415; 70450; 71045; 80053; 80306; 81001; 83690; 84484; 85025; 93005; 96374; 96375; 99283; 99284; A9270; J2765; 80320

== ENCOUNTER 2020-10-10 08:00 | Outpatient (CLI) | payer MEDICARE, OTHER | END 2020-10-10 23:59 | disposition home or self-care (01) | LOC: LAB.R 08:00 | PROVIDERS: ATTEND Family Medicine | DX: R19.4 Change in bowel habit (principal) | CPT/HCPCS: 81599; 82274; 83993; 87045; 87046; 87177; 87209; 87329; 87338; 87427; 87493 ==

== ENCOUNTER 2020-12-03 07:00 | Outpatient (CLI) | payer MEDICARE, OTHER | END 2020-12-03 07:01 | disposition home or self-care (01) | LOC: LAB.N 07:00 | PROVIDERS: ATTEND Physician Assistant Medical | DX: N39.0 Urinary tract infection, site not specified (principal) | CPT/HCPCS: 87077; 87086; 87181 ==

== ENCOUNTER 2020-12-17 12:50 | Outpatient (CLI) | payer MEDICARE, OTHER | END 2020-12-17 12:51 | disposition critical access hospital (66) | LOC: EMS 12:50 | PROVIDERS: ATTEND Emergency Medicine | DX: R11.0 Nausea (principal); R51.9 Headache, unspecified; H53.8 Other visual disturbances | CPT/HCPCS: A0425; A0429 ==

== ENCOUNTER 2020-12-17 13:07 | Emergency (ER) | payer MEDICARE, OTHER ==
[2020-12-17] MEDS ORDERED: levETIRAcetam INJ 1,000 MG in SODIUM CHLORIDE 0.9% 100ML 100 ML IV STA (13:25)
--- NOTE | 2020-12-17 13:28 | ED Physician Documentation ---
History of Present Illness - Stated complaint Stated Complaint: VISUAL CHANGES - History obtained from History obtained from: Patient, EMS - History of Present Illness Timing: Today Pain level max: 6 Pain level now: 6 - Additonal information Additional information: Patient is a 70-year-old female who presents to the emergency department with EMS today. She reportedly was having flashing spots in her vision and a headache earlier. This is typical for her. She has been worked up for migraines versus seizures with neurology at the [facility]. She is not currently on any antiepileptics. 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 No recent medication changes. She does smoke. Unknown if she drinks alcohol or not. Patient was seizing upon arrival to the emergency department. Seizure lasted about 2 to 3 minutes. Full body tonic-clonic. Bit her lip. Review of Systems Unable to obtain: Confused (post ictal) PD PAST MEDICAL HISTORY - Past Medical History Respiratory: COPD Neuro: CVA Endocrine/Autoimmune: None GI: Diverticulitis SENIOR STATISTICAL PROGRAMMER: None : None HEENT: Other Psych: None Musculoskeletal: None Derm: None - Past Surgical History Past Surgical History: Yes General: Appendectomy /SENIOR STATISTICAL PROGRAMMER: section HEENT: Cataracts, Tonsil/Adenoidectomy - Present Medications Home Medications: Ambulatory Orders Medication Instructions Recorded Confirmed Ipratropium/Albuterol [Duoneb] 1 puffs PO BID 08/25/18 12/17/20 Atorvastatin [Lipitor] 80 mg PO DAILY 09/21/20 12/17/20 Lisinopril [Prinivil] 10 mg PO BID 09/21/20 12/17/20 Metoprolol Succinate [Toprol Xl] 50 mg PO DAILY 09/21/20 12/17/20 Levetiracetam [Keppra] 500 mg PO BID #60 tablet 12/17/20 - Allergies Allergies/Adverse Reactions: Allergies Allergy/AdvReac Type Severity Reaction Status Date / Time doxycycline Allergy Unknown Verified 12/17/20 13:27 erythromycin base Allergy Unknown Verified 12/17/20 13:27 - Social History Does the pt smoke?: Yes Smoking Status: Current every day smoker Does the pt drink ETOH?: Yes Does the pt have substance abuse?: No - Immunizations Immunizations are current?: Yes - POLST Patient has POLST: No PD ED PE NORMAL - Vitals Vital signs reviewed: Yes - General General: No acute distress, Well developed/nourished, Other (post ictal, confused) - HEENT HEENT: Atraumatic, PERRL, Moist mucous membranes, Other (bit lower left lip, inner surface) - Neck Neck: Supple, no meningeal sign, No bony TTP - Cardiac Cardiac: RRR - Respiratory Respiratory: No respiratory distress, Clear bilaterally - Abdomen Abdomen: Soft, Non tender, Non distended - Derm Derm: Warm and dry - Extremities Extremities: No edema - Neuro Neuro: Other (post ictal, drowsy, but arousable and confused) Results - Vitals Vitals: Vital Signs - 24 hr 12/17/20 12/17/20 12/17/20 13:19 14:49 16:09 Temperature 36.2 C L Heart Rate 110 H 77 84 Respiratory 16 17 16 Rate Blood Pressure 192/91 H 126/59 L 130/58 L O2 Saturation 92 100 100 12/17/20 16:19 Temperature Heart Rate 82 Respiratory 17 Rate Blood Pressure 130/58 L O2 Saturation 98 Oxygen O2 Source Room air - Labs Labs: Laboratory Tests 12/17/20 12/17/20 12/17/20 13:25 14:06 15:40 WBC 7.4 RBC 3.40 L Hgb 11.7 L Hct 34.4 L MCV 101.2 H MCH 34.4 H MCHC 34.0 RDW 13.2 Plt Count 241 MPV 8.5 Neut # (Auto) 5.6 Lymph # (Auto) 1.2 L [place] # (Auto) 0.5 Eos # (Auto) 0.1 Baso # (Auto) 0.0 Absolute Nucleated RBC 0.00 Nucleated RBC % 0.0 Sodium 134 L Potassium 4.1 Chloride 97 L Carbon Dioxide 21 Anion Gap 16.0 H BUN 16 Creatinine 0.9 Estimated GFR (MDRD) 62 L Glucose 133 H Calcium 8.9 Total Bilirubin 0.6 AST 26 ALT 18 Alkaline Phosphatase 45 Total Protein 6.3 L Albumin 4.0 Globulin 2.3 Albumin/Globulin Ratio 1.7 Lipase 43 Urine Color YELLOW Urine Clarity CLEAR Urine pH 5.5 Ur Specific [place] 1.025 Urine Protein TRACE Urine Glucose (UA) NEGATIVE Urine Ketones TRACE Urine Occult Blood NEGATIVE Urine Nitrite NEGATIVE Urine Bilirubin NEGATIVE Urine Urobilinogen 0.2 (NORMAL) Ur Leukocyte Esterase NEGATIVE Ur Microscopic Review NOT INDICATED Urine Culture Comments NOT INDICATED Urine Opiates Screen NEGATIVE Ur Oxycodone Screen NEGATIVE Urine Methadone Screen NEGATIVE Ur Propoxyphene Screen NEGATIVE Ur Barbiturates Screen NEGATIVE Ur Tricyclics Screen NEGATIVE Ur Phencyclidine Scrn NEGATIVE Ur Amphetamine Screen NEGATIVE U Methamphetamines Scrn NEGATIVE U Benzodiazepines Scrn NEGATIVE Urine Cocaine Screen NEGATIVE U Cannabinoids Screen NEGATIVE Ethyl Alcohol < 5.0 - Rads (name of study) head CT Radiology: Prelim report reviewed, EMP read contemporaneously, See rad report PD MEDICAL DECISION MAKING - ED course Complexity details: reviewed old records, reviewed results, re-evaluated patient, considered differential, d/w patient ED course: 70-year-old female with a generalized tonic-clonic seizure today. Sounds like she had an aura prior to the seizure. This has happened to her before, but they were unclear if she was having seizures or not as it was not witnessed. Given a gram of Keppra here. Head CT does not show any acute abnormalities. No significant findings on laboratory testing. Discussed the case with her neurologist from the [facility], Dr. Ramiro Taylor, recommends Keppra 500 mg p.o. twice daily and follow-up in clinic. Patient's mental status returned to her normal baseline. No other injuries other than the bit lip. Patient counseled regarding signs and symptoms for which I believe and urgent re- evaluation would be necessary. Patient with good understanding of and agreement to plan and is comfortable going home at this time This document was made in part using voice recognition software. While efforts are made to proofread this document, sound alike and grammatical errors may occur. IMPRESSION: No acute intracranial abnormality. Stable encephalomalacia in the right occipital lobe from prior infarct. Departure - Departure Disposition: 01 Home, Self Care Clinical Impression: Seizure Condition: Good Instructions: ED Seizure Recurrent Follow-Up: Ramiro Taylor MD [Physician No Access] - Prescriptions: Levetiracetam [Keppra] 500 mg PO BID #60 tablet Comments: Follow-up with Dr. Kamara for further care. Take the Keppra as prescribed. You are not to drive or operate heavy machinery until cleared by neurology. Do not swim or take baths either. You can shower Discharge Date/Time: 12/17/20 16:58
--- NOTE | 2020-12-17 13:53 | CT Report ---
PROCEDURE: HEAD WO INDICATIONS: seizure, h/o cva TECHNIQUE: Noncontrast 4.5 mm thick angled axial sections acquired from the foramen magnum to the vertex. For r adiation dose reduction, the following was used: automated exposure control, adjustment of mA and/or kV according to patient size. COMPARISON: Head CT 10/02/2020, 08/25/2018. FINDINGS: Image quality: Excellent. CSF spaces: Basal cisterns are patent. No extra-axial fluid collections. Ventricles are normal in size and shape. Brain: No midline shift. No intracranial masses or hemorrhage. Encephalomalacia in the right occipi jocelyn lobe is similar the prior exam. No new area of hypodensity in a vascular distribution. Skull and face: Calvarium and visualized facial bones are intact, without suspicious lesions. Sinuses: Visualized sinuses and mastoids are clear. IMPRESSION: No acute intracranial abnormality. Stable encephalomalacia in the right occipital lobe from prior infarct. Reviewed by: Juan Townsend MD on 12/17/2020 12:51 PM [facility] Approved by: Juan Townsend MD on 12/17/2020 12:51 PM [facility] Station ID: [id number]
[2020-12-17 14:12] LABS: BASOPHILS % (AUTO) 0.5 %; EOSINOPHILS # (AUTO) 0.1 10^3/uL (0.0-0.7); EOSINOPHILS % (AUTO) 0.9 %; HCT - HEMATOCRIT 34.4 % (37.0-47.0); HGB - HEMOGLOBIN 11.7 g/dL (12.0-16.0); LYMPHOCYTES # (AUTO) 1.2 10^3/uL (1.5-3.5); LYMPHOCYTES % (AUTO) 16.4 %; MEAN CORPUSCULAR HEMOGLOBIN 34.4 pg (27.0-31.0); MEAN CORPUSCULAR VOLUME 101.2 fL (81.0-99.0); MEAN PLATELET VOLUME 8.5 fL (7.9-10.8); MONOCYTES # (AUTO) 0.5 10^3/uL (0.0-1.0); MONOCYTES % (AUTO) 6.6 %; NEUTROPHILS # (AUTO) 5.6 10^3/uL (1.5-6.6); NEUTROPHILS % (AUTO) 75.5 %; PLT - PLATELET COUNT 241 10^3/uL (130-450); RED CELL DISTRIBUTION WIDTH 13.2 % (12.0-15.0); WHITE BLOOD COUNT 7.4 x10^3/uL (4.8-10.8)
[2020-12-17 14:25] LABS: ALBUMIN/GLOBULIN RATIO 1.7 (1.0-2.2); ALKALINE PHOSPHATASE 45 IU/L (42-121); ALT ALANINE AMINOTRANSFERASE 18 IU/L (10-60); AST ASPARTATE AMINOTRANSFERASE 26 IU/L (10-42); BILIRUBIN,TOTAL 0.6 mg/dL (0.2-1.0); BUN - BLOOD UREA NITROGEN 16 mg/dL (6-20); CALCIUM 8.9 mg/dL (8.5-10.3); CARBON DIOXIDE - CO2 21 mmol/L (21-32); CHLORIDE 97 mmol/L (101-111); CREATININE 0.9 mg/dL (0.4-1.0); ETOH - ETHANOL < 5.0 mg/dL; GFR - MDRD 62 (>89); GLUCOSE 133 mg/dL (70-100); LIPASE 43 U/L (22-51); POTASSIUM 4.1 mmol/L (3.5-5.0); SODIUM 134 mmol/L (135-145); TOTAL PROTEIN 6.3 g/dL (6.7-8.2)
[2020-12-17 16:07] LABS: MUDS CUTOFF CONCENTRATIONS CUTOFF CONC BELOW:
[2020-12-17 16:09] LABS: BILIRUBIN,URINE NEGATIVE (NEGATIVE); GLUCOSE, URINE (UA) NEGATIVE (NEGATIVE); KETONES,URINE (UA) TRACE mg/dL (NEGATIVE); LEUKOCYTE ESTERASE, URINE NEGATIVE (NEGATIVE); NITRITE,URINE NEGATIVE (NEGATIVE); OCCULT BLOOD,URINE NEGATIVE (NEGATIVE); PH,URINE 5.5 PH (5.0-7.5); PROTEIN,URINE TRACE mg/dL (NEGATIVE); UROBILINOGEN,URINE 0.2 (NORMAL) E.U./dL (NORMAL)
[2020-12-17 16:10] VITALS: BP 130/58
[2020-12-17 16:10] LABS: CLARITY,URINE CLEAR (CLEAR)
[2020-12-17 16:25] LABS: AMPHETAMINE SCREEN,URINE NEGATIVE (NEGATIVE); BARBITURATE SCREEN,UR NEGATIVE (NEGATIVE); BENZODIAZEPINES SCREEN, URINE NEGATIVE (NEGATIVE); COCAINE SCREEN URINE NEGATIVE (NEGATIVE); METHADONE SCREEN, URINE NEGATIVE (NEGATIVE); METHAMPHETAMINES SCREEN, URINE NEGATIVE (NEGATIVE); OPIATE SCREEN, URINE NEGATIVE (NEGATIVE); OXYCODONE SCREEN, URINE NEGATIVE (NEGATIVE); PROPOXYPHENE SCREEN, URINE NEGATIVE (NEGATIVE); THC CANNABINOID SCREEN, URINE NEGATIVE (NEGATIVE); TRICYCLIC ANTIDEPRESSANT,URINE NEGATIVE (NEGATIVE)
== END 2020-12-17 16:58 | disposition home or self-care (01) ==
LOC: EDUNIT# → ED 13:07
DX: G40.89 Other seizures (principal); F17.200 Nicotine dependence, unspecified, uncomplicated
CPT/HCPCS: 36415; 70450; 80053; 80306; 81003; 83690; 85025; 96365; 99281; 99284; G0480; 80320; 81001; 87086

== ENCOUNTER 2020-12-24 12:17 | Emergency (ER) | payer MEDICARE, OTHER ==
--- NOTE | 2020-12-24 12:34 | ED Physician Documentation ---
PD HPI DYSPNEA - Stated complaint Stated Complaint: SOA - Chief complaint Chief Complaint: Resp - History obtained from History obtained from: Patient - Additional information Additional information: 70-year-old woman with COPD presents because she ran out of her nebulizer solution and is feeling short of breath. No increase in her chronic cough or production. No fevers. No chest pain. No pedal edema or calf pain. She tried calling her doctor's office for refill, but they were not open. PD PAST MEDICAL HISTORY - Past Medical History Respiratory: COPD Neuro: CVA Endocrine/Autoimmune: None GI: Diverticulitis MAGAZINE HAND: None : None HEENT: Other Psych: None Musculoskeletal: None Derm: None - Past Surgical History Past Surgical History: Yes General: Appendectomy /MAGAZINE HAND: section HEENT: Cataracts, Tonsil/Adenoidectomy - Present Medications Home Medications: Ambulatory Orders Medication Instructions Recorded Confirmed Ipratropium/Albuterol [Duoneb] 1 puffs PO BID 08/25/18 12/24/20 Atorvastatin [Lipitor] 80 mg PO DAILY 09/21/20 12/24/20 Lisinopril [Prinivil] 10 mg PO BID 09/21/20 12/24/20 Metoprolol Succinate [Toprol Xl] 50 mg PO DAILY 09/21/20 12/24/20 Levetiracetam [Keppra] 500 mg PO BID #60 tablet 12/17/20 12/24/20 Ipratropium/Albuterol [Duoneb] 3 ml INH Q6H PRN #30 unit 12/24/20 - Allergies Allergies/Adverse Reactions: Allergies Allergy/AdvReac Type Severity Reaction Status Date / Time doxycycline Allergy Unknown Verified 12/24/20 12:23 erythromycin base Allergy Unknown Verified 12/24/20 12:23 - Social History Does the pt smoke?: Yes Smoking Status: Current every day smoker Does the pt drink ETOH?: Yes Does the pt have substance abuse?: No - Immunizations Immunizations are current?: Yes - POLST Patient has POLST: No PD ED PE NORMAL - Vitals Vital signs reviewed: Yes - General General: Alert and oriented X 3, No acute distress - HEENT HEENT: PERRL, EOMI - Neck Neck: Supple, no meningeal sign, No bony TTP - Cardiac Cardiac: RRR, No murmur - Respiratory Respiratory: Other (No respiratory distress, speaking in full sentences, moderate expiratory wheezing, no focal findings.) - Derm Derm: No rash - Extremities Extremities: No edema, No calf tenderness / cord - Neuro Neuro: Alert and oriented X 3, Normal speech Results - Vitals Vitals: Vital Signs - 24 hr 12/24/20 12/24/20 12:22 12:27 Temperature 36 C L 36 C L Heart Rate 95 95 Respiratory 22 22 Rate Blood Pressure 154/93 H 154/93 H O2 Saturation 99 99 Oxygen O2 Source Room air PD MEDICAL DECISION MAKING - ED course ED course: DuoNeb here, she declined steroids. The history and physical are typical for COPD and I do not think further work-up is necessary. Departure - Departure Disposition: 01 Home, Self Care Clinical Impression: COPD exacerbation Condition: Good Record reviewed to determine appropriate education?: Yes Instructions: COPD Dc Prescriptions: Ipratropium/Albuterol [Duoneb] 3 ml INH Q6H PRN #30 unit PRN Reason: Dyspnea Comments: Prescription was sent electronically to [facility] in [place]. Return if worsening. Follow-up with your doctor this coming week.
[2020-12-24] MEDS: IPRATROPIUM/ALBUTEROL 3 ML NEB INH STA ×2 (12:50→12:57)
[2020-12-24 13:16] VITALS: BP 137/82
== END 2020-12-24 13:15 | disposition home or self-care (01) ==
LOC: ED 12:17
DX: J44.1 Chronic obstructive pulmonary disease with (acute) exacerbation (principal); F17.200 Nicotine dependence, unspecified, uncomplicated
CPT/HCPCS: 94640; 99283

== ENCOUNTER 2021-02-06 14:45 | Outpatient (CLI) | payer MEDICARE, OTHER ==
--- NOTE | 2021-02-08 14:09 | Mammography Report ---
BILATERAL DIGITAL SCREENING MAMMOGRAM 3D/2D: 02/06/2021 CLINICAL: Routine screening. Comparison is made to exam dated: 08/16/2008 mammogram - [facility]. There are sc attered fibroglandular elements in both breasts. No significant masses, calcifications, or other findings are seen in either breast. There has been no significant interval change. IMPRESSION: NEGATIVE There is no mammographic evidence of malignancy. A 1 year screening mammogram is recommended. This exam was interpreted at Station ID: [id number]. NOTE: For mammograms, a report in lay terms will be sent to the patient. Approximately 15% of breast malignancies will not be visualized mammographically. In the management of a palpable breast mass, a negative mammogram must not discourage biopsy of a clinically suspicious lesion. Electronically Signed By: Paul Prado M.D. [email or web address]:02/08/2021 07:43:00 ACR BI-RADS Category 1: Negative 3341F PARENCHYMAL PATTERN: (A) - The breast(s) demonstrate(s) scattered fibroglandular densities. BI-RADS CATEGORY: (1) - 1 RECOMMENDATION: (ANNUAL) - Recommend routine annual screening mammography. [id number] 1 year screening LATERALITY: (B)
== END 2021-02-06 14:46 | disposition home or self-care (01) ==
LOC: DI 14:45
PROVIDERS: ATTEND Registered Nurse
DX: Z12.31 Encounter for screening mammogram for malignant neoplasm of breast (principal); Z80.41 Family history of malignant neoplasm of ovary

== ENCOUNTER 2021-02-06 14:47 | Outpatient (CLI) | payer MEDICARE, OTHER ==
--- NOTE | 2021-02-07 09:46 | CT Report ---
PROCEDURE: Low Dose Lung Cancer Screen INDICATIONS: HISTORY OF SMOKING TECHNIQUE: Noncontrast low-dose 5 mm thick sections acquired from the pulmonary apices to the posterior costophr enic angles. 7 mm thick coronal and sagittal MIP reformats were then acquired. For radiation dose r eduction, the following was used: automated exposure control, adjustment of mA and/or kV according t o patient size. COMPARISON: None. FINDINGS: Image quality: Excellent. Lungs and pleura: Pulmonary hyperexpansion is present with flattening of the diaphragms and there is a pattern of moderate centrilobular emphysema. Additionally, scattered within the lung parenchyma bi laterally are small areas of what appears to be alveolar scarring related to prior inflammatory event s. This is also seen at the lung apices with contiguous pleural and lung parenchymal scarring. No mas s lesion is found that would indicate likelihood of early development of lung carcinoma. Mediastinum: Heart size is normal and there is moderate calcific plaquing involving the coronary art eries.. No pericardial effusion. No mediastinal adenopathy by size criteria. Thoracic aorta and ce ntral pulmonary arteries are normal in size. Esophagus is normal in caliber. No hiatal hernia. Bones and chest wall: No suspicious bony lesions. No vertebral body compression fractures. No axil kendrick or supraclavicular adenopathy by size criteria. Abdomen: Visualized upper abdomen solid organs and bowel loops appear normal in the absence of contr ast. IMPRESSION: Scattered areas of lung parenchymal scarring, no lesion is seen that would indicate likelihood of ear ly manifestation of lung carcinoma. Lung RADS category 2, follow-up noncontrast low-dose CT scanning is recommended in 1 year. Reviewed by: Natalio Nielson MD on 02/07/2021 9:45 AM PDT Approved by: Natalio Nielson MD on 02/07/2021 9:45 AM PDT Station ID: [id number]
== END 2021-02-06 14:48 | disposition home or self-care (01) ==
LOC: DI 14:47
PROVIDERS: ATTEND Registered Nurse
DX: Z12.2 Encounter for screening for malignant neoplasm of respiratory organs (principal); F17.210 Nicotine dependence, cigarettes, uncomplicated

== ENCOUNTER 2021-05-19 08:00 | Outpatient (CLI) | payer MEDICARE, OTHER | END 2021-05-19 23:59 | disposition home or self-care (01) | LOC: LAB.N 08:00 | PROVIDERS: ATTEND Physician Assistant Medical | DX: N39.0 Urinary tract infection, site not specified (principal) | CPT/HCPCS: 87086 ==

== ENCOUNTER 2021-05-27 19:50 | Outpatient (CLI) | payer MEDICARE, OTHER | END 2021-05-27 19:51 | disposition critical access hospital (66) | LOC: EMS 19:50 | DX: R53.1 Weakness (principal) | CPT/HCPCS: A0425; A0429 ==

== ENCOUNTER 2021-05-27 20:07 | Emergency (ER) | payer MEDICARE, OTHER ==
[2021-05-27] MEDS ORDERED: SODIUM CHLORIDE 0.9% 1,000 ML IV STA (20:23)
[2021-05-27] MEDS ORDERED: THIAMINE INJ 100 MG in SODIUM CHLORIDE 0.9% 50 ML IV STA (20:24)
[2021-05-27] MEDS ORDERED: THIAMINE 100 MG/1 ML 2 ML MDV ONE (20:41)
[2021-05-27 20:44] LABS: BASOPHILS # (AUTO) 0.1 10^3/uL (0.0-0.1); BASOPHILS % (AUTO) 0.8 %; EOSINOPHILS # (AUTO) 0.2 10^3/uL (0.0-0.7); EOSINOPHILS % (AUTO) 2.9 %; HCT - HEMATOCRIT 36.5 % (37.0-47.0); HGB - HEMOGLOBIN 12.1 g/dL (12.0-16.0); LYMPHOCYTES # (AUTO) 2.3 10^3/uL (1.5-3.5); LYMPHOCYTES % (AUTO) 28.9 %; MEAN CORPUSCULAR HEMOGLOBIN 34.3 pg (27.0-31.0); MEAN CORPUSCULAR HGB CONC 33.2 g/dL (32.0-36.0); MEAN CORPUSCULAR VOLUME 103.4 fL (81.0-99.0); MONOCYTES # (AUTO) 0.7 10^3/uL (0.0-1.0); MONOCYTES % (AUTO) 8.8 %; NEUTROPHILS # (AUTO) 4.6 10^3/uL (1.5-6.6); NEUTROPHILS % (AUTO) 58.3 %; PLT - PLATELET COUNT 359 10^3/uL (130-450); RED BLOOD COUNT 3.53 10^6/uL (4.20-5.40); RED CELL DISTRIBUTION WIDTH 12.7 % (12.0-15.0); WHITE BLOOD COUNT 7.9 x10^3/uL (4.8-10.8)
[2021-05-27 20:53] LABS: ALBUMIN 4.1 g/dL (3.2-5.5); ALBUMIN/GLOBULIN RATIO 1.4 (1.0-2.2); BILIRUBIN,TOTAL 0.9 mg/dL (0.2-1.0); CALCIUM 9.1 mg/dL (8.5-10.3); CREATININE 0.6 mg/dL (0.4-1.0); ETOH - ETHANOL 99.1 mg/dL; MAGNESIUM 2.1 mg/dL (1.7-2.8); POTASSIUM 3.9 mmol/L (3.5-5.0)
--- NOTE | 2021-05-27 21:04 | ED Physician Documentation ---
History of Present Illness - Stated complaint Stated Complaint: GEN WEAKNESS - Chief complaint Chief Complaint: Neuro - History obtained from History obtained from: Patient - History of Present Illness Timing: How many weeks ago (1) Pain level max: 0 Pain level now: 0 Improved by: rest Worsened by: no exacerbating factors, but weakness is more noticable when she tries to ambulate - Additonal information Additional information: patient c/o approximately 1 week of generalized weakness, mostly BLE weakness with associated increasing difficulty in standing and ambulating. She says she has never had this problem before but that over the past week she has started using a walker and has to focus her effort on getting her legs to move as she wants them to and to support her weight. She denies injury. She says she was evaluated by her PMD several days ago for this, no testing performed at that time. 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 denies: Numbness, Confused, Altered mental status, Headache, Head injury PD PAST MEDICAL HISTORY - Past Medical History Cardiovascular: Hypertension, High cholesterol Respiratory: COPD Neuro: CVA - Present Medications Home Medications: Ambulatory Orders Medication Instructions Recorded Confirmed Ipratropium/Albuterol [Duoneb] 1 puffs PO BID 08/25/18 12/24/20 Atorvastatin [Lipitor] 80 mg PO DAILY 09/21/20 12/24/20 Metoprolol Succinate [Toprol Xl] 50 mg PO DAILY 09/21/20 12/24/20 lisinopriL [Prinivil] 10 mg PO BID 09/21/20 12/24/20 Levetiracetam [Keppra] 500 mg PO BID #60 tablet 12/17/20 12/24/20 Ipratropium/Albuterol [Duoneb] 3 ml INH Q6H PRN #30 unit 12/24/20 Aspirin [[place] Aspirin] 1 tab DAILY 05/27/21 05/27/21 Atorvastatin Calcium [Lipitor] 1 tab DAILY 05/27/21 05/27/21 Levetiracetam [Keppra] 0.5 tab BID 05/27/21 05/27/21 Lisinopril [Zestril] 1 tab BID 05/27/21 05/27/21 Metoprolol Succinate [Toprol Xl] 1 tab DAILY 05/27/21 05/27/21 - Allergies Allergies/Adverse Reactions: Allergies Allergy/AdvReac Type Severity Reaction Status Date / Time doxycycline Allergy Unknown Verified 05/28/21 08:14 erythromycin base Allergy Unknown Verified 05/28/21 08:14 - Social History Does the pt smoke?: Yes Smoking Status: Current every day smoker Does the pt drink ETOH?: Yes ETOH Use: Wine Does the pt have substance abuse?: No PD ED PE NORMAL - Vitals Vital signs reviewed: Yes - General General: Alert and oriented X 3, No acute distress, Well developed/nourished - HEENT HEENT: Atraumatic, PERRL, EOMI, Moist mucous membranes - Neck Neck: No bony TTP - Cardiac Cardiac: RRR, No murmur - Respiratory Respiratory: No respiratory distress, Clear bilaterally - Abdomen Abdomen: Soft, Non tender - Back Back: No CVA TTP, No spinal TTP - Derm Derm: Normal color, Warm and dry, Other (scattered BLE echymoses) - Extremities Extremities: No deformity, No tenderness to palpate, Normal ROM s pain, No edema - Neuro Neuro: Alert and oriented X 3, small business representative 2-12 intact, No motor deficit, No sensory deficit, Normal speech Eye Opening: Spontaneous Motor: Obeys Commands Verbal: Oriented GCS Score: 15 Results - Vitals Vitals: Vital Signs - 24 hr 05/27/21 05/27/21 05/27/21 20:10 20:54 22:20 Temperature 36.5 C Heart Rate 84 82 65 Respiratory 24 16 19 Rate Blood Pressure 138/81 H 126/77 153/95 H O2 Saturation 100 99 96 05/27/21 23:28 Temperature Heart Rate 82 Respiratory 20 Rate Blood Pressure 133/64 H O2 Saturation 98 Oxygen O2 Source Room air - Labs Labs: Microbiology 05/27/21 21:38 Urine Culture - Preliminary Urine,Clean Catch CULTURE IN PROGRESS. RESULTS TO FOLLOW. Laboratory Tests 05/27/21 05/27/21 05/27/21 20:33 20:33 20:44 WBC 7.9 RBC 3.53 L Hgb 12.1 Hct 36.5 L MCV 103.4 H MCH 34.3 H MCHC 33.2 RDW 12.7 Plt Count 359 MPV 9.0 Neut # (Auto) 4.6 Lymph # (Auto) 2.3 [place] # (Auto) 0.7 Eos # (Auto) 0.2 Baso # (Auto) 0.1 Absolute Nucleated RBC 0.00 Nucleated RBC % 0.0 PT 11.0 INR 1.0 Sodium 135 Potassium 3.9 Chloride 97 L Carbon Dioxide 25 Anion Gap 13.0 BUN 8 Creatinine 0.6 Estimated GFR (MDRD) 99 Glucose 93 Calcium 9.1 Magnesium 2.1 Total Bilirubin 0.9 AST 21 ALT 16 Alkaline Phosphatase 82 Total Protein 7.0 Albumin 4.1 Globulin 2.9 Albumin/Globulin Ratio 1.4 Lipase 43 Urine Color Urine Clarity Urine pH Ur Specific [place] Urine Protein Urine Glucose (UA) Urine Ketones Urine Occult Blood Urine Nitrite Urine Bilirubin Urine Urobilinogen Ur Leukocyte Esterase Urine RBC Urine WBC Ur Squamous Epith Cells Urine Bacteria Ur Microscopic Review Urine Culture Comments Nasal Adenovirus (PCR) Nasal B. parapertussis DNA (PCR) Nasal Coronavir 229E PCR Nasal Coronavir HKU1 PCR Nasal Coronavir NL63 PCR Nasal Coronavir OC43 PCR Nasal Enterovir/Rhinovir PCR Nasal Influenza B PCR Nasal Influenza A PCR Nasal Parainfluen 1 PCR Nasal Parainfluen 2 PCR Nasal Parainfluen 3 PCR Nasal Parainfluen 4 PCR Nasal RSV (PCR) Nasal B.pertussis DNA PCR Nasal C.pneumoniae (PCR) [place] Human Metapneumo PCR Nasal M.pneumoniae (PCR) Nasal SARS-CoV-2 (PCR) Ethyl Alcohol 99.1 05/27/21 05/27/21 21:38 22:38 WBC RBC Hgb Hct MCV MCH MCHC RDW Plt Count MPV Neut # (Auto) Lymph # (Auto) [place] # (Auto) Eos # (Auto) Baso # (Auto) Absolute Nucleated RBC Nucleated RBC % PT INR Sodium Potassium Chloride Carbon Dioxide Anion Gap BUN Creatinine Estimated GFR (MDRD) Glucose Calcium Magnesium Total Bilirubin AST ALT Alkaline Phosphatase Total Protein Albumin Globulin Albumin/Globulin Ratio Lipase Urine Color YELLOW Urine Clarity CLEAR Urine pH 6.0 Ur Specific [place] <=1.005 Urine Protein NEGATIVE Urine Glucose (UA) NEGATIVE Urine Ketones NEGATIVE Urine Occult Blood NEGATIVE Urine Nitrite NEGATIVE Urine Bilirubin NEGATIVE Urine Urobilinogen 0.2 (NORMAL) Ur Leukocyte Esterase TRACE H Urine RBC 0-5 Urine WBC 0-3 Ur Squamous Epith Cells RARE Squamous Urine Bacteria None Seen Ur Microscopic Review INDICATED Urine Culture Comments INDICATED Nasal Adenovirus (PCR) NOT DETECTED Nasal B. parapertussis DNA (PCR) NOT DETECTED Nasal Coronavir 229E PCR NOT DETECTED Nasal Coronavir HKU1 PCR NOT DETECTED Nasal Coronavir NL63 PCR NOT DETECTED Nasal Coronavir OC43 PCR NOT DETECTED Nasal Enterovir/Rhinovir PCR NOT DETECTED Nasal Influenza B PCR NOT DETECTED Nasal Influenza A PCR NOT DETECTED Nasal Parainfluen 1 PCR NOT DETECTED Nasal Parainfluen 2 PCR NOT DETECTED Nasal Parainfluen 3 PCR NOT DETECTED Nasal Parainfluen 4 PCR NOT DETECTED Nasal RSV (PCR) NOT DETECTED Nasal B.pertussis DNA PCR NOT DETECTED Nasal C.pneumoniae (PCR) NOT DETECTED [place] Human Metapneumo PCR NOT DETECTED Nasal M.pneumoniae (PCR) NOT DETECTED Nasal SARS-CoV-2 (PCR) NOT DETECTED Ethyl Alcohol - Rads (name of study) chest xray Radiology: Prelim report reviewed, See rad report CT head Radiology: Prelim report reviewed, See rad report PD MEDICAL DECISION MAKING - ED course Complexity details: reviewed results, re-evaluated patient, considered differential, d/w patient, d/w family (with patient's permission, I discussed the test results, diagnosis, and plan (transfer to [facility]) with patient's son (Chalino)) ED course: patient c/o one week of gradual onset but steadily worsening BLE weakness. She denies recent head injury. In discussion with her son, Chalino, over the phone (with patient's permission), he indicates patient is an alcoholic. When I mention to patient the finding of several bruises on her legs, she says these are due to some recent falls, but she again denies any recollection of head injury, denies neck pain, denies back pain, and denies BRENNAN. CT head demonstrates findings suggestive of subacute SDH with 1.2 cm midline shift. Given the large area involved and this significant midline shift, she is transferred to [facility] ED after I discussed the case with Dr. Garcai (ED at [facility], who accepts patient for transfer) Departure - Departure Disposition: 02 Transfer Acute Care Hosp Clinical Impression: Subdural hematoma Condition: Stable Discharge Date/Time: 05/27/21 23:38
[2021-05-27 21:46] LABS: BILIRUBIN,URINE NEGATIVE (NEGATIVE); GLUCOSE, URINE (UA) NEGATIVE (NEGATIVE); KETONES,URINE (UA) NEGATIVE (NEGATIVE); LEUKOCYTE ESTERASE, URINE TRACE (NEGATIVE); NITRITE,URINE NEGATIVE (NEGATIVE); OCCULT BLOOD,URINE NEGATIVE (NEGATIVE); PROTEIN,URINE NEGATIVE (NEGATIVE); UROBILINOGEN,URINE 0.2 (NORMAL) E.U./dL (NORMAL)
[2021-05-27 21:49] LABS: BACTERIA,URINE None Seen /HPF (None Seen); CLARITY,URINE CLEAR (CLEAR); RBC,URINE 0-5 /HPF (0-5); SQUAMOUS EPITHELIAL CELL,UR RARE Squamous (<= Few); WBC,URINE 0-3 /HPF (0-5)
--- NOTE | 2021-05-27 22:22 | CT Report ---
PROCEDURE: HEAD WO INDICATIONS: BLE weakness TECHNIQUE: Noncontrast 4.5 mm thick angled axial sections acquired from the foramen magnum to the vertex. For r adiation dose reduction, the following was used: automated exposure control, adjustment of mA and/or kV according to patient size. COMPARISON: None. FINDINGS: Image quality: Excellent. Brain: There is an isodense holohemispheric right extra-axial fluid collection measuring approximatel y 4.4 cm in greatest transverse dimension. It is causing right to left midline shift measuring approx imately 1.2 cm. There is marked effacement and compression of the right lateral ventricle as well as the posterior right temporal horn. Third ventricle is also compressed. Bee-white matter interface is normal. Skull and face: Calvarium and visualized facial bones are intact, without suspicious lesions. Sinuses: Visualized sinuses and mastoids are clear. IMPRESSION: 1. Holohemispheric right isodense extra-axial fluid collection with midline shift most consistent wit h subacute subdural hematoma. Findings were discussed with Dr. Baker on 08/27/2021 at 10:18 PM. Reviewed by: Sanaz Pabon MD on 05/27/2021 10:20 PM PDT Approved by: Sanaz Pabon MD on 05/27/2021 10:20 PM PDT Station ID: [id number]
--- NOTE | 2021-05-27 22:26 | XRAY Report ---
PROCEDURE: Chest 2 View X-Ray INDICATIONS: generalized weakness TECHNIQUE: 2 view(s) of the chest. COMPARISON: Chest x-ray 12/17/2019 FINDINGS: Surgical changes and devices: None. Lungs and pleura: Lungs are hyperinflated. There is overlapping shadows at the left lung base. No con solidations. Mediastinum: Mediastinal contours are normal. Heart size is normal. Bones and chest wall: As noted above, overlapping soft tissue densities are noted at the right base. There is a poorly visualized inferior lateral left rib fracture, with the possibility of an adjacent additional rib fracture. Soft tissues appear unremarkable. IMPRESSION: Incompletely evaluated left base secondary to what appears to be overlapping shadows. In addition, inferior lateral left rib fracture, possibly an adjacent second rib fracture also appears to be present, obscured by overlapping shadows. Further evaluation with repeat x-ray or CT chest is r ecommended to exclude presence of pneumothorax at the base given incomplete evaluation in presence of rib fractures. Reviewed by: Sanaz Pabon MD on 05/27/2021 10:24 PM PDT Approved by: Sanaz Pabon MD on 05/27/2021 10:24 PM PDT Station ID: [id number]
[2021-05-27 23:30] VITALS: BP 133/64
[2021-05-27 23:31] LABS: B. PARAPERTUSSIS- RESP PCR PAN NOT DETECTED; B. PERTUSSIS- RESP PCR PANEL NOT DETECTED; C. PNEUMONIAE- RESP PCR PANEL NOT DETECTED; CORONAVIRUS 229E-RESP PCR NOT DETECTED; CORONAVIRUS HKU1-RESP PCR NOT DETECTED; CORONAVIRUS NL63-RESP PCR NOT DETECTED; CORONAVIRUS OC43-RESP PCR NOT DETECTED; HUMAN METAPNEUMOVIRUS NOT DETECTED; INFLUENZA A- RESP PCR PANEL NOT DETECTED; INFLUENZA B - RESP PCR PANEL NOT DETECTED; M. PNEUMONIAE- RESP PCR PANEL NOT DETECTED; PARAINFLUENZA VIRUS 1 NOT DETECTED; PARAINFLUENZA VIRUS 2 NOT DETECTED; PARAINFLUENZA VIRUS 3 NOT DETECTED; PARAINFLUENZA VIRUS 4 NOT DETECTED; RHINOVIRUS/ENTEROVIRUS NOT DETECTED; RSV- RESP PCR PANEL NOT DETECTED; SARS-CoV-2 -RESP PCR PANEL NOT DETECTED
== END 2021-05-27 23:38 | disposition short-term general hospital (02) ==
LOC: EDBD → MERGE 20:07 → ED 20:07
DX: I62.00 Nontraumatic subdural hemorrhage, unspecified (principal); I69.812 Visuospatial deficit and spatial neglect following other cerebrovascular disease; F17.200 Nicotine dependence, unspecified, uncomplicated; Z20.822 Contact with and (suspected) exposure to COVID-19; Z79.82 Long term (current) use of aspirin; I10 Essential (primary) hypertension
CPT/HCPCS: 36415; 70450; 71046; 80053; 81001; 83690; 83735; 85025; 85610; 87086; 87631; 96361; 96365; 99284; 99285; G0480; J3411; J7040; 0202U; 80320; 81003

== ENCOUNTER 2021-06-17 11:08 | Emergency (ER) | payer MEDICARE, OTHER ==
--- NOTE | 2021-06-17 11:55 | ED Physician Documentation ---
PD HPI FOCAL NEURO - Stated complaint Stated Complaint: H/O TBI, DIZZY - Chief complaint Chief Complaint: General - History obtained from History obtained from: Patient - History of Present Illness Timing - onset: Today Timing - duration: Hours Timing - details: Abrupt onset, Still present Severity of deficit: Mild Weakness: No: Face, Arm, Leg Numbness: No: Face, Arm, Leg Associated symptoms: No: Headache, Nausea / vomiting Contributing factors: negative: Anticoagulated Baseline status: positive: A&OX3, ambulatory, indep Similar symptoms before: Diagnosis (she had similar lightheaded though much worse, and with some headache, when had subdural hematoma 20 days ago. She had been cautioned to recheck if any symptoms, so here for eval.) Recently seen: Emergency Dept, Surgery (had decompressive surgery for subdural hematoma 20 days ago.), Transferred Review of Systems Constitutional: denies: Fever, Chills Nose: denies: Rhinorrhea / runny nose, Congestion Throat: denies: Sore throat Cardiac: denies: Chest pain / pressure Respiratory: denies: Dyspnea, Cough GI: denies: Abdominal Pain, Nausea, Vomiting, Diarrhea Skin: denies: Rash, Lesions Neurologic: denies: Focal weakness, Numbness, Confused PD PAST MEDICAL HISTORY - Past Medical History Cardiovascular: High cholesterol, Hypertension Respiratory: COPD Neuro: CVA Endocrine/Autoimmune: None GI: Diverticulitis AUTO ADJUDICATION SPECIALIST: None : None HEENT: Other Psych: None Musculoskeletal: None Derm: None - Past Surgical History Past Surgical History: Yes General: Appendectomy /AUTO ADJUDICATION SPECIALIST: section HEENT: Cataracts, Tonsil/Adenoidectomy - Present Medications Home Medications: Ambulatory Orders Medication Instructions Recorded Confirmed Ipratropium/Albuterol [Duoneb] 1 puffs PO BID 08/25/18 12/24/20 Atorvastatin [Lipitor] 80 mg PO DAILY 09/21/20 12/24/20 Metoprolol Succinate [Toprol Xl] 50 mg PO DAILY 09/21/20 12/24/20 lisinopriL [Prinivil] 10 mg PO BID 09/21/20 12/24/20 Levetiracetam [Keppra] 500 mg PO BID #60 tablet 12/17/20 12/24/20 Ipratropium/Albuterol [Duoneb] 3 ml INH Q6H PRN #30 unit 12/24/20 Aspirin [[place] Aspirin] 1 tab DAILY 05/27/21 05/27/21 Atorvastatin Calcium [Lipitor] 1 tab DAILY 05/27/21 05/27/21 Levetiracetam [Keppra] 0.5 tab BID 05/27/21 05/27/21 Lisinopril [Zestril] 1 tab BID 05/27/21 05/27/21 Metoprolol Succinate [Toprol Xl] 1 tab DAILY 05/27/21 05/27/21 - Allergies Allergies/Adverse Reactions: Allergies Allergy/AdvReac Type Severity Reaction Status Date / Time doxycycline Allergy Unknown Verified 06/17/21 11:22 erythromycin base Allergy Unknown Verified 06/17/21 11:22 - Social History Does the pt smoke?: Yes Smoking Status: Current every day smoker Does the pt drink ETOH?: Yes Does the pt have substance abuse?: No - Immunizations Immunizations are current?: Yes - POLST Patient has POLST: No PD ED PE NORMAL - Vitals Vital signs reviewed: Yes - General General: Alert and oriented X 3, No acute distress, Well developed/nourished - Neck Neck: Supple, no meningeal sign, No adenopathy - Cardiac Cardiac: RRR, No murmur - Respiratory Respiratory: Clear bilaterally - Abdomen Abdomen: Soft, Non tender - Derm Derm: Normal color, Warm and dry - Extremities Extremities: Normal ROM s pain - Neuro Neuro: Alert and oriented X 3, 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 2-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, No motor deficit, No sensory deficit, Normal speech Results - Vitals Vitals: Oxygen O2 Source Room air - Labs Labs: Laboratory Tests 06/17/21 06/17/21 12:52 12:52 WBC 6.8 RBC 3.70 L Hgb 12.3 Hct 37.4 MCV 101.1 H MCH 33.2 H MCHC 32.9 RDW 12.1 Plt Count 361 MPV 9.4 Neut # (Auto) 4.4 Lymph # (Auto) 1.7 [place] # (Auto) 0.6 Eos # (Auto) 0.1 Baso # (Auto) 0.0 Absolute Nucleated RBC 0.00 Nucleated RBC % 0.0 Sodium 138 Potassium 4.0 Chloride 100 L Carbon Dioxide 27 Anion Gap 11.0 BUN 9 Creatinine 0.5 Estimated GFR (MDRD) 123 Glucose 101 H Calcium 9.2 Magnesium 2.0 Total Bilirubin 0.6 AST 25 ALT 28 Alkaline Phosphatase 73 Total Protein 7.0 Albumin 4.4 Globulin 2.6 Albumin/Globulin Ratio 1.7 Lipase 94 H - Rads (name of study) head CT Radiology: Prelim report reviewed (findings c/w remote subdural, without new bleeding. ), See rad report PD MEDICAL DECISION MAKING - ED course Complexity details: reviewed results, considered differential (recent TBI with subdural and surgery decompressive. Having lightheaded feeling. Can check CT to ensure not recurrent bleed. Also to check labs to ensure not low sodium/etc. ), d/w patient Departure - Departure Disposition: 01 Home, Self Care Clinical Impression: Light-headed feeling Condition: Stable Record reviewed to determine appropriate education?: Yes Comments: Your CT scan does not show any acute rebleeding or swelling. It appears consistent with your recent surgery. Your basic blood tests are normal with a normal sodium and electrolytes and blood sugar. Your lightheaded feeling may be related to under hydration. Be sure to eat and drink well through the day. See how you feel over the next couple of days and if you develop any other symptoms such as congestion cough fevers etc. That may account for some of your early symptoms now instead. Continue usual medications. Return if worsening. Discharge Date/Time: 06/17/21 13:59
[2021-06-17 12:08] VITALS: BP 101/77
--- NOTE | 2021-06-17 12:45 | CT Report ---
PROCEDURE: HEAD WO INDICATIONS: lightheaded/dizzy today; s/p SDH with surgery TECHNIQUE: Noncontrast 4.5 mm thick angled axial sections acquired from the foramen magnum to the vertex. For r adiation dose reduction, the following was used: automated exposure control, adjustment of mA and/or kV according to patient size. COMPARISON: 12/17/2020, 10/02/2020 FINDINGS: Image quality: Excellent. CSF spaces: Basal cisterns are patent. The right lateral ventricle is smaller than the left. Brain: Right-sided subdural hemorrhage is seen, with a maximum thickness of 13 mm. There is mixed density w ithin this hemorrhage, yet without [place] acute components. There is 2-3 mm of midline shift. No intracranial masses. Bee-white matter interface is normal. Encephalomalacia with remote infarct can be seen involving the posterior aspect of the right cerebral hemisphere involving the occipital region. Skull and face: Right-sided richard holes are seen. Calvarium and visualized facial bones are intact, w ithout suspicious lesions. Sinuses: Visualized sinuses and mastoids are clear. IMPRESSION: Known right subdural hemorrhage, without [place] acute hemorrhage. If clinically appropriate, please consider short-term follow-up head CT. Mass effect is seen, with narrowing of the right lateral ventricle and 2-3 mm midline shift. Right-sided richard holes are seen. Remote right posterior cerebral hemisphere infarction. Reviewed by: Lane Aceves MD on 06/17/2021 11:44 AM [facility] Approved by: Lane Aceves MD on 06/17/2021 11:44 AM [facility] Station ID: [id number]
[2021-06-17 12:58] LABS: BASOPHILS % (AUTO) 0.3 %; EOSINOPHILS # (AUTO) 0.1 10^3/uL (0.0-0.7); EOSINOPHILS % (AUTO) 1.8 %; HCT - HEMATOCRIT 37.4 % (37.0-47.0); HGB - HEMOGLOBIN 12.3 g/dL (12.0-16.0); LYMPHOCYTES # (AUTO) 1.7 10^3/uL (1.5-3.5); LYMPHOCYTES % (AUTO) 24.9 %; MEAN CORPUSCULAR HEMOGLOBIN 33.2 pg (27.0-31.0); MEAN CORPUSCULAR HGB CONC 32.9 g/dL (32.0-36.0); MEAN CORPUSCULAR VOLUME 101.1 fL (81.0-99.0); MEAN PLATELET VOLUME 9.4 fL (7.9-10.8); MONOCYTES # (AUTO) 0.6 10^3/uL (0.0-1.0); MONOCYTES % (AUTO) 8.3 %; NEUTROPHILS # (AUTO) 4.4 10^3/uL (1.5-6.6); NEUTROPHILS % (AUTO) 64.4 %; PLT - PLATELET COUNT 361 10^3/uL (130-450); RED CELL DISTRIBUTION WIDTH 12.1 % (12.0-15.0); WHITE BLOOD COUNT 6.8 x10^3/uL (4.8-10.8)
[2021-06-17 13:44] LABS: ALBUMIN 4.4 g/dL (3.2-5.5); ALBUMIN/GLOBULIN RATIO 1.7 (1.0-2.2); BILIRUBIN,TOTAL 0.6 mg/dL (0.2-1.0); CALCIUM 9.2 mg/dL (8.5-10.3); CREATININE 0.5 mg/dL (0.4-1.0)
[2021-06-17] MEDS ORDERED: ONDANSETRON ODT 4 MG TABLET TL STA (13:46)
== END 2021-06-17 13:59 | disposition home or self-care (01) ==
LOC: ED 11:08
DX: R42 Dizziness and giddiness (principal); Z87.820 Personal history of traumatic brain injury; Z98.890 Other specified postprocedural states; F17.200 Nicotine dependence, unspecified, uncomplicated; I10 Essential (primary) hypertension; J44.9 Chronic obstructive pulmonary disease, unspecified
CPT/HCPCS: 36415; 80053; 83690; 83735; 85025; 99283; 99284

== ENCOUNTER 2021-09-06 12:52 | Outpatient (CLI) | payer MEDICARE, OTHER ==
--- NOTE | 2021-09-06 14:58 | CT Report ---
PROCEDURE: HEAD WO INDICATIONS: SUBDURAL HEMATOMA TECHNIQUE: Noncontrast 4.5 mm thick angled axial sections acquired from the foramen magnum to the vertex. For r adiation dose reduction, the following was used: automated exposure control, adjustment of mA and/or kV according to patient size. COMPARISON: 06/17/2021, 12/17/2020 FINDINGS: Image quality: Excellent. CSF spaces: Basal cisterns are patent. No extra-axial fluid collections. Ventricles are normal in size and shape. Brain: There is a small amount of right subdural hemorrhage seen. The hemorrhage is primarily dense and measures 3 mm in thickness. This is clearly improved compared to the 06/17/2021 examination. Volume loss is seen involving the inferior occipital/posterior temporal region, as before. No midline shift. No intracranial masses. Bee-white matter interface is normal. Skull and face: Right-sided richard holes are seen. Calvarium and visualized facial bones are intact, w ithout suspicious lesions. Sinuses: Visualized sinuses and mastoids are clear. IMPRESSION: The right-sided subdural hematoma is clearly improved compared to 06/17/2021. However, th ere is a 3 mm dense component seen, which likely represents interval hemorrhage. Right-sided richard holes are seen. Stable right temporal occipital infarction. Note: Findings of likely interval subdural hematoma discussed by telephone with nurse Alon at 1:20 PM [place] time on 09/06/2021. Reviewed by: Lane Aceves MD on 09/06/2021 1:57 PM [facility] Approved by: Lane Aceves MD on 09/06/2021 1:57 PM [facility] Station ID: [id number]
== END 2021-09-06 12:53 | disposition home or self-care (01) ==
LOC: DI 12:52
PROVIDERS: ATTEND Neurological Surgery
DX: S06.5X9A Traumatic subdural hemorrhage with loss of consciousness of unspecified duration, initial encounter (principal)

== ENCOUNTER 2021-11-09 13:44 | Outpatient (CLI) | payer MEDICARE, OTHER | END 2021-11-09 13:45 | disposition EMS.NT | LOC: EMS 13:44 | DX: R53.1 Weakness (principal); R11.0 Nausea; R20.0 Anesthesia of skin ==

== ENCOUNTER 2021-11-09 14:44 | Emergency (ER) | payer MEDICARE, OTHER ==
[2021-11-09 15:19] LABS: BILIRUBIN,URINE NEGATIVE (NEGATIVE); GLUCOSE, URINE (UA) 100 mg/dL (NEGATIVE); KETONES,URINE (UA) TRACE mg/dL (NEGATIVE); LEUKOCYTE ESTERASE, URINE NEGATIVE (NEGATIVE); NITRITE,URINE NEGATIVE (NEGATIVE); OCCULT BLOOD,URINE NEGATIVE (NEGATIVE); PH,URINE 5.5 PH (5.0-7.5); PROTEIN,URINE TRACE mg/dL (NEGATIVE); UROBILINOGEN,URINE 0.2 (NORMAL) E.U./dL (NORMAL)
[2021-11-09 15:21] LABS: CLARITY,URINE CLEAR (CLEAR)
--- NOTE | 2021-11-09 15:54 | ED Physician Documentation ---
History of Present Illness - Stated complaint Stated Complaint: ABD PAIN/CHILLS - Chief complaint Chief Complaint: Abd Pain - Additonal information Additional information: 71-year-old female who has a history of hypertension, seizure disorder, previous myocardial infarction as well as traumatic brain injury presents the emergency department for evaluation of a generalized tingling sensation. She reports that it starts in her epigastric area and spreads out like a spiderweb. She then will have sweating of her palms and feet. She believes it is a panic attack. She states that this has been intermittent for a while. She has tried previous antianxiety meds without relief. She has no chest pain. No changes in shortness of breath. No focal weakness. Review of Systems Constitutional: denies: Fever, Chills Eyes: reports: Reviewed and negative Ears: reports: Reviewed and negative Throat: reports: Reviewed and negative Cardiac: reports: Reviewed and negative Respiratory: denies: Dyspnea, Cough GI: reports: Reviewed and negative : reports: Reviewed and negative Skin: reports: Reviewed and negative Musculoskeletal: reports: Reviewed and negative Neurologic: reports: Other (Numbness and tingling in extremities). denies: Generalized weakness, Focal weakness, Difficulty speaking, Near syncope, Syncope, Confused, Headache, Head injury, LOC PD PAST MEDICAL HISTORY - Past Medical History Cardiovascular: High cholesterol, Hypertension Respiratory: COPD Neuro: CVA Endocrine/Autoimmune: None GI: Diverticulitis TANK RIVETER: None : None HEENT: Other Psych: None Musculoskeletal: None Derm: None - Past Surgical History Past Surgical History: Yes General: Appendectomy /TANK RIVETER: section HEENT: Cataracts, Tonsil/Adenoidectomy - Present Medications Home Medications: Ambulatory Orders Medication Instructions Recorded Confirmed Ipratropium/Albuterol [Duoneb] 1 puffs PO BID 08/25/18 12/24/20 Atorvastatin [Lipitor] 80 mg PO DAILY 09/21/20 12/24/20 Metoprolol Succinate [Toprol Xl] 50 mg PO DAILY 09/21/20 12/24/20 lisinopriL [Prinivil] 10 mg PO BID 09/21/20 12/24/20 Levetiracetam [Keppra] 500 mg PO BID #60 tablet 12/17/20 12/24/20 Ipratropium/Albuterol [Duoneb] 3 ml INH Q6H PRN #30 unit 12/24/20 Aspirin [[place] Aspirin] 1 tab DAILY 05/27/21 05/27/21 Atorvastatin Calcium [Lipitor] 1 tab DAILY 05/27/21 05/27/21 Levetiracetam [Keppra] 0.5 tab BID 05/27/21 05/27/21 Lisinopril [Zestril] 1 tab BID 05/27/21 05/27/21 Metoprolol Succinate [Toprol Xl] 1 tab DAILY 05/27/21 05/27/21 hydrOXYzine HCL [Hydroxyzine HCl] 25 mg PO BID PRN #20 tablet 11/09/21 - Allergies Allergies/Adverse Reactions: Allergies Allergy/AdvReac Type Severity Reaction Status Date / Time doxycycline Allergy Unknown Verified 11/09/21 14:59 erythromycin base Allergy Unknown Verified 11/09/21 14:59 - Social History Does the pt smoke?: Yes Smoking Status: Current every day smoker Does the pt drink ETOH?: Yes Does the pt have substance abuse?: No - Immunizations Immunizations are current?: Yes - POLST Patient has POLST: No PD ED PE NORMAL - General General: Alert and oriented X 3, No acute distress, Well developed/nourished, Other (Anxious appearing) - HEENT HEENT: Atraumatic, Moist mucous membranes, Pharynx benign - Neck Neck: Supple, no meningeal sign, No adenopathy - Cardiac Cardiac: RRR, No murmur, No gallop - Respiratory Respiratory: No respiratory distress, Clear bilaterally - Abdomen Abdomen: Normal bowel sounds, Soft, Non tender - Back Back: No CVA TTP, No spinal TTP - Derm Derm: Normal color, Warm and dry, No rash - Extremities Extremities: No deformity, No tenderness to palpate, Normal ROM s pain - Neuro Neuro: Alert and oriented X 3, joint finisher 2-12 intact Eye Opening: Spontaneous Motor: Obeys Commands Verbal: Oriented GCS Score: 15 Results - Vitals Vitals: Vital Signs - 24 hr 11/09/21 11/09/21 11/09/21 14:54 14:59 17:00 Temperature 36.4 C L 36.4 C L Heart Rate 92 92 88 Respiratory 18 18 17 Rate Blood Pressure 142/68 H 142/68 H 133/84 H O2 Saturation 97 97 99 Oxygen O2 Source Room air - EKG (time done) 1553 Rate: Rate (enter#) (82) Rhythm: NSR [place]: Normal Intervals: No: Prolonged QT QRS: Normal Ischemia: Q waves (V1V2) Compare to prior EKG: Unchanged from prior EKG Computer interpretation: Agree with computer - Labs Labs: Laboratory Tests 11/09/21 11/09/21 11/09/21 15:10 16:08 16:08 WBC 7.4 RBC 3.59 L Hgb 12.3 Hct 36.2 L MCV 100.8 H MCH 34.3 H MCHC 34.0 RDW 13.8 Plt Count 288 MPV 9.0 Neut # (Auto) 5.3 Lymph # (Auto) 1.3 L [place] # (Auto) 0.7 Eos # (Auto) 0.0 Baso # (Auto) 0.0 Absolute Nucleated RBC 0.00 Nucleated RBC % 0.0 Sodium 133 L Potassium 3.6 Chloride 97 L Carbon Dioxide 24 Anion Gap 12.0 BUN 13 Creatinine 0.5 Estimated GFR (MDRD) 122 Glucose 95 Calcium 8.9 Total Bilirubin 1.1 H AST 20 ALT 15 Alkaline Phosphatase 43 Troponin I High Sens Total Protein 6.7 Albumin 3.9 Globulin 2.8 Albumin/Globulin Ratio 1.4 Lipase 48 Urine Color DARK YELLOW Urine Clarity CLEAR Urine pH 5.5 Ur Specific [place] >=1.030 H Urine Protein TRACE Urine Glucose (UA) 100 H Urine Ketones TRACE Urine Occult Blood NEGATIVE Urine Nitrite NEGATIVE Urine Bilirubin NEGATIVE Urine Urobilinogen 0.2 (NORMAL) Ur Leukocyte Esterase NEGATIVE Ur Microscopic Review NOT INDICATED Urine Culture Comments NOT INDICATED 11/09/21 16:08 WBC RBC Hgb Hct MCV MCH MCHC RDW Plt Count MPV Neut # (Auto) Lymph # (Auto) [place] # (Auto) Eos # (Auto) Baso # (Auto) Absolute Nucleated RBC Nucleated RBC % Sodium Potassium Chloride Carbon Dioxide Anion Gap BUN Creatinine Estimated GFR (MDRD) Glucose Calcium Total Bilirubin AST ALT Alkaline Phosphatase Troponin I High Sens 4.7 Total Protein Albumin Globulin Albumin/Globulin Ratio Lipase Urine Color Urine Clarity Urine pH Ur Specific [place] Urine Protein Urine Glucose (UA) Urine Ketones Urine Occult Blood Urine Nitrite Urine Bilirubin Urine Urobilinogen Ur Leukocyte Esterase Ur Microscopic Review Urine Culture Comments PD MEDICAL DECISION MAKING - ED course Complexity details: reviewed results, re-evaluated patient, considered differential, d/w patient, d/w family ED course: 71-year-old female who has a history of coronary artery disease, previous trauma tic brain injury as well as COPD presents the emergency department for a generalized feeling of uneasiness. She starts a tingling sensation in her abdomen that then extends to her arms and legs and she becomes sweaty. She denies that she is having chest pain and is worried that she could be having a panic attack but with her medical history wanted to be evaluated for cardiac causes. Screening EKG is unchanged and nonischemic. Troponin is negative. Otherwise screening labs are unremarkable. Patient does not have any focal neuro signs low suspicion for a CVA. I did prescribe a small amount of hydroxyzine. I did advise her to have close follow-up with her primary care provider to discuss longer-term management of likely anxiety related symptoms. Emergent return precautions were discussed. Departure - Departure Disposition: 01 Home, Self Care Clinical Impression: Tingling in extremities Condition: Stable Record reviewed to determine appropriate education?: Yes Prescriptions: hydrOXYzine HCL [Hydroxyzine HCl] 25 mg PO BID PRN #20 tablet PRN Reason: Anxiety Comments: Karlo villalpando were seen today in the emergency department for tingling in your arms and legs that starts in your stomach area. Your screening labs, EKG do not show any worrisome findings. It does not suggest that you are having a heart attack. You do describe to me a lot of stress happening in your life and it is possible that the symptoms are due to anxiety. Please discuss this ED visit with your primary care doctor. I am prescribing a small amount of the medication called hydroxyzine that you can take once or twice a day for anxiety. In general we do recommend that when feeling anxious you take slow deep breaths and try and calm yourself but your primary doctor may want to write a prescription for a different kind of medication. If you ever have any fainting episodes, sudden severe chest pain or shortness of breath then please return immediately to the ER for a second evaluation
[2021-11-09 16:13] LABS: BASOPHILS % (AUTO) 0.5 %; EOSINOPHILS % (AUTO) 0.3 %; HCT - HEMATOCRIT 36.2 % (37.0-47.0); HGB - HEMOGLOBIN 12.3 g/dL (12.0-16.0); LYMPHOCYTES # (AUTO) 1.3 10^3/uL (1.5-3.5); LYMPHOCYTES % (AUTO) 17.1 %; MEAN CORPUSCULAR HEMOGLOBIN 34.3 pg (27.0-31.0); MEAN CORPUSCULAR VOLUME 100.8 fL (81.0-99.0); MONOCYTES # (AUTO) 0.7 10^3/uL (0.0-1.0); MONOCYTES % (AUTO) 9.3 %; NEUTROPHILS # (AUTO) 5.3 10^3/uL (1.5-6.6); NEUTROPHILS % (AUTO) 72.5 %; PLT - PLATELET COUNT 288 10^3/uL (130-450); RED BLOOD COUNT 3.59 10^6/uL (4.20-5.40); RED CELL DISTRIBUTION WIDTH 13.8 % (12.0-15.0); WHITE BLOOD COUNT 7.4 x10^3/uL (4.8-10.8)
[2021-11-09 16:46] LABS: ALBUMIN 3.9 g/dL (3.2-5.5); ALBUMIN/GLOBULIN RATIO 1.4 (1.0-2.2); BILIRUBIN,TOTAL 1.1 mg/dL (0.2-1.0); CALCIUM 8.9 mg/dL (8.5-10.3); CREATININE 0.5 mg/dL (0.4-1.0); POTASSIUM 3.6 mmol/L (3.5-5.0); TOTAL PROTEIN 6.7 g/dL (6.7-8.2)
[2021-11-09 17:09] VITALS: BP 133/84
== END 2021-11-09 17:30 | disposition home or self-care (01) ==
LOC: ED 14:44
DX: R20.2 Paresthesia of skin (principal); I10 Essential (primary) hypertension; I25.2 Old myocardial infarction; G40.909 Epilepsy, unspecified, not intractable, without status epilepticus; F17.200 Nicotine dependence, unspecified, uncomplicated; Z87.820 Personal history of traumatic brain injury
CPT/HCPCS: 36415; 80053; 81001; 81003; 83690; 84484; 85025; 87086; 93005; 99283; 99284

== ENCOUNTER 2022-04-15 12:07 | Outpatient (CLI) | payer MEDICARE, OTHER | END 2022-04-15 12:08 | disposition EMS.NT | LOC: EMS 12:07 | DX: R06.02 Shortness of breath (principal) ==